=== PATIENT | female | born 1965 | race Caucasian/White ===

== ENCOUNTER 2021-11-28 20:47 | Inpatient (IN) | payer OTHER ==
[~2021-11-28] VITALS: Ht 165.1 cm; Wt 52.2 kg
--- NOTE | 2021-11-28 20:49 | NUR ---
PT SHARDA ALS. TAKEN TO BED 1
[2021-11-28 20:50] VITALS: BP 154/99
--- NOTE | 2021-11-28 21:15 | NUR ---
Patient BIB by JUAN FRANCISCO from [facility]. C/O COVID-19 positive x today. Per reported, patient missed dialysis and COVID-19 positive. PMHx: ERSD, CAD, CHF, HTN Sx: Right Hemicraniectomy, Tracheostomy, PEG tube placement, Dialysis Catheter placement, Addendum: 11/29/21 at 0555 by ALESHA TRACH PRESENT, LEFT ARM SHUNT IN PLACE WITH STRONG BRUIT, PEG INTACT TO ABDOMEN.
[2021-11-28 21:46] LABS: BASOPHILS # (AUTO) 0.1 K/uL (0.00-0.22); BASOPHILS % (AUTO) 0.7 % (0.0-2.0); EOSINOPHILS # (AUTO) 1.3 K/uL (0-0.4); EOSINOPHILS % (AUTO) 6.6 % (0.0-4.0); HEMATOCRIT 28.9 % (36-48); HEMOGLOBIN 9.1 g/dL (12.0-16.0); LYMPHOCYTES # (AUTO) 1.4 K/uL (2.5-16.5); LYMPHOCYTES % (AUTO) 7.1 % (20.5-51.1); MEAN CORPUSCULAR HEMOGLOBIN 28 pg (27-31); MEAN CORPUSCULAR HGB CONC 31 g/dL (33-37); MEAN CORPUSCULAR VOLUME 88.1 fL (80-94); MONOCYTES # (AUTO) 1.2 K/uL (0.8-1.0); MONOCYTES % (AUTO) 5.8 % (1.7-9.3); NEUTROPHILS # (AUTO) 15.8 K/uL (1.8-7.7); NEUTROPHILS % (AUTO) 79.8 % (42.2-75.2); PLATELET COUNT (AUTO) 903 K/uL (140-450); RED BLOOD CELL COUNT(AUTO) 3.29 MIL/uL (4.20-5.40); RED CELL DISTRIBUTION WIDTH 17.4 % (11.6-13.7); WHITE BLOOD COUNT (AUTO) 19.8 K/uL (4.8-10.8)
[2021-11-28 22:09] LABS: CARBON DIOXIDE 23.7 mmol/L (21-32); POTASSIUM 4.7 mmol/L (3.5-5.1); TOTAL BILIRUBIN 0.4 mg/dL (0.0-1.0)
[2021-11-28 22:15] LABS: CREATININE 4.4 mg/dL (0.6-1.3)
[2021-11-28] MEDS: PIPERACILLIN/TAZOBACTAM 4.5 GM in DEXTROSE 5% 100 ML IV ONE (23:55)
--- NOTE | 2021-11-29 | NUR ---
RESTING IN BED. RESPIRATIONS SLIGHTLY RAPID. REPOSITIONED FOR COMFORT
--- NOTE | 2021-11-29 00:55 | NUR ---
SL ESTABLISHED RIGHT HAND, LABS DRAWN
[2021-11-29] MEDS ORDERED: PIPERACILLIN/TAZOBACTAM 3.375 GM VIAL IV ONE (01:00)
[2021-11-29] MEDS ORDERED: PIPERACILLIN/TAZOBACTAM 4.5 GM VIAL IV ONE (01:37)
[2021-11-29] MEDS: PIPERACILLIN/TAZOBACTAM 4.5 GM in DEXTROSE 5% 100 ML IV ONE (01:47)
--- NOTE | 2021-11-29 03:00 | NUR ---
REPOSITIONED FOR COMFORT
[2021-11-29] MEDS ORDERED: HYDR-5080 PO (03:33)
[2021-11-29] MEDS ORDERED: LACO150T PO (03:41)
[2021-11-29] MEDS ORDERED: VITA1TAB44 PO (03:41)
[2021-11-29] MEDS ORDERED: BISO5TAB23 PO (03:41)
[2021-11-29] MEDS ORDERED: KEP500 GT (03:41)
[2021-11-29] MEDS ORDERED: INSU100S5 IJ (03:44)
[2021-11-29] MEDS ORDERED: PRO5 PO (03:45)
--- NOTE | 2021-11-29 05:30 | NUR ---
PHOTOS TAKEN OF COCCYX AND PLACED ON CHART
[2021-11-29] MEDS ORDERED: ONDANSETRON 4 MG/2 ML VIAL IVP PRN (05:35)
[2021-11-29] MEDS ORDERED: ACETAMINOPHEN 325 MG TAB PO PRN (05:35)
[2021-11-29] MEDS ORDERED: HYDROcodone/APAP 5/325 MG 1 TAB TAB PO PRN (05:35)
[2021-11-29] MEDS ORDERED: PIPERACILLIN/TAZOBACTAM 3.375 GM in DEXTROSE 5% 50 ML IV SCH (06:00)
[2021-11-29] MEDS ORDERED: PIPERACILLIN/TAZOBACTAM 2.25 GM VIAL IV ONE (06:17)
[2021-11-29] MEDS: PIPERACILLIN/TAZOBACTAM 2.25 GM in DEXTROSE 5% 50 ML IV SCH ×3 (06:45→21:46)
--- NOTE | 2021-11-29 07:31 | NUR ---
RECIEVED REPORT FROM ROSALINDA STALLWORTH FOR TRANSFER OF CARE.
--- NOTE | 2021-11-29 07:49 | NUR ---
Patient will be admitted to care of DR GRIFFIN. Admited to TELEMETRY. Will go to room 117. Belongings list completed. Report to ROSALINDA MOSES.
[2021-11-29 08:30] VITALS: BP 169/96
--- NOTE | 2021-11-29 08:30 | NUR ---
RECEIVED PATIENT FROM ER NURSE VIA SERGIO. PT ADMITTED FOR MISSED DIALYSIS. PT IS AOX0, APHASIC. RESPIRATIONS EVEN AND UNLABORED. ON 4L T-PIECE WITH 02 SATURATION AT 100%. SKIN IS WARM, DRY, AND NON-INTACT. NOTED PRESSURE ULCER ON SACRAL AREA. REINFORCED WITH DRESSING, C/D/I. IV SITE ON RH 20G. INTACT AND PATENT. SALINE LOCKED. ABD IS SOFT, FLAT, NON-DISTENDED. BOWEL SOUNDS ACTIVE IN ALL QUADRANTS. HAS G-TUBE IN PLACE. NO RESIDUAL NOTED. FLACC 0. PLAN OF CARE DISCUSSED. SAFETY PRECAUTIONS IN PLACE. WOUND BED IN LOW POSITION. CALL LIGHT WITHIN REACH. WILL CONTINUE TO MONITOR.
--- NOTE | 2021-11-29 08:59 | NUR ---
The patient's care was reviewed and supervised by ED Agency Nurse 7, RN, RN.
--- NOTE | 2021-11-29 09:45 | NUR ---
PERMIT COORDINATOR AT BEDSIDE.
[2021-11-29] MEDS: DEXAMETHASONE 4 MG/ML VIAL IVP SCH (10:00)
[2021-11-29] MEDS: MIDODRINE 5 MG TAB PO SCH (10:00)
[2021-11-29] MEDS: METOPROLOL 25 MG TAB PO SCH ×2 (10:01→21:46)
[2021-11-29] MEDS: levETIRAcetam 500 MG TAB GT SCH ×2 (10:01→21:46)
[2021-11-29] MEDS: VIT-B COMP/VIT-C/FOLIC ACID 1 TAB PO SCH (10:01)
--- NOTE | 2021-11-29 10:15 | NUR ---
ALL SCHEDULED MEDS GIVEN. PT IS STABLE NO DISTRESS NOTED. WILL CONTINUE TO MONITOR.
[2021-11-29 12:00] VITALS: BP 171/94
[2021-11-29 12:27] LABS: HEMATOCRIT 26.7 % (36-48); HEMOGLOBIN 8.3 g/dL (12.0-16.0); MEAN CORPUSCULAR HEMOGLOBIN 27 pg (27-31); MEAN CORPUSCULAR HGB CONC 31 g/dL (33-37); MEAN CORPUSCULAR VOLUME 87.7 fL (80-94); PLATELET COUNT (AUTO) 918 K/uL (140-450); RED BLOOD CELL COUNT(AUTO) 3.04 MIL/uL (4.20-5.40); WHITE BLOOD COUNT (AUTO) 21.1 K/uL (4.8-10.8)
[2021-11-29 12:40] LABS: ANION GAP 19.1 (8-16); CARBON DIOXIDE 23.6 mmol/L (21-32); POTASSIUM 5.7 mmol/L (3.5-5.1)
[2021-11-29 13:29] LABS: EOSINOPHILS % (MANUAL) 3 % (0-4); LYMPHOCYTES % (MANUAL) 3 % (20-46); MONOCYTES % (MANUAL) 3 % (5-12)
--- NOTE | 2021-11-29 14:04 | NUR ---
ALL SCHEDULED MEDS GIVEN. PT IS STABLE. NO DISTRESS NOTED. WILL CONTINUE TO MONITOR.
[2021-11-29] MEDS: hydrALAZINE 20 MG/ML VIAL IVP PRN (14:05)
--- NOTE | 2021-11-29 14:18 | NUR ---
RECEIVED ON HUMIDIFIED SUPPLEMENTAL OXYGEN AT 5 LPM TO T-PIECE/TRACHEOSTOMY TUBE SATURATION 100% TITRATED FIO2 TO 4 LPM AURELIA/RN NOTIFIED
--- NOTE | 2021-11-29 14:55 | NUR ---
IV DISLODGED REINSERTED NEW 22G IV ON RH. INTACT AND PATENT.
[2021-11-29 16:00] VITALS: BP 111/77
--- NOTE | 2021-11-29 17:30 | NUR ---
CHECKED ON PATIENT. PT IS STABLE. NO DISTRESS NOTED. WILL CONTINUE TO MONITOR.
--- NOTE | 2021-11-29 18:00 | NUR ---
DR. GRADY AT PATIENT'S BEDSIDE.
--- NOTE | 2021-11-29 19:40 | NUR ---
ENDORSED TO SALESFORCE ADMINISTRATOR NURSE FOR CONTINUITY OF CARE. HD NURSE AT BEDSIDE. PT IS STABLE.
[2021-11-29 20:29] VITALS: BP 100/70
[2021-11-29 23:34] VITALS: BP 113/71
[2021-11-30 03:54] VITALS: BP 134/78
[2021-11-30] MEDS: PIPERACILLIN/TAZOBACTAM 2.25 GM in DEXTROSE 5% 50 ML IV SCH ×3 (06:06→21:31)
--- NOTE | 2021-11-30 07:18 | NUR ---
PATIENT HAS BEEN SCREENED AND CATEGORIZED HIGH NUTRITION RISK. PATIENT WILL BE SEEN WITHIN 1-2 DAYS OF ADMISSION. 11/29/21-11/30/21 TROY GAGNON MS, RDN
[2021-11-30 07:25] LABS: BASOPHILS # (AUTO) 0.1 K/uL (0.00-0.22); BASOPHILS % (AUTO) 0.3 % (0.0-2.0); EOSINOPHILS # (AUTO) 0.1 K/uL (0-0.4); EOSINOPHILS % (AUTO) 0.8 % (0.0-4.0); HEMATOCRIT 27.6 % (36-48); HEMOGLOBIN 8.6 g/dL (12.0-16.0); LYMPHOCYTES # (AUTO) 1.1 K/uL (2.5-16.5); LYMPHOCYTES % (AUTO) 6.4 % (20.5-51.1); MEAN CORPUSCULAR HEMOGLOBIN 28 pg (27-31); MEAN CORPUSCULAR HGB CONC 31 g/dL (33-37); MEAN CORPUSCULAR VOLUME 90.7 fL (80-94); MONOCYTES # (AUTO) 0.9 K/uL (0.8-1.0); MONOCYTES % (AUTO) 5.3 % (1.7-9.3); NEUTROPHILS # (AUTO) 14.6 K/uL (1.8-7.7); NEUTROPHILS % (AUTO) 87.2 % (42.2-75.2); PLATELET COUNT (AUTO) 961 K/uL (140-450); RED BLOOD CELL COUNT(AUTO) 3.04 MIL/uL (4.20-5.40); RED CELL DISTRIBUTION WIDTH 17.1 % (11.6-13.7); WHITE BLOOD COUNT (AUTO) 16.8 K/uL (4.8-10.8)
[2021-11-30 07:41] LABS: ALBUMIN 2.1 g/dL (3.4-5.0); ANION GAP 16.2 (8-16); CARBON DIOXIDE 24.3 mmol/L (21-32); CREATININE 3.6 mg/dL (0.6-1.3); POTASSIUM 3.5 mmol/L (3.5-5.1); TOTAL BILIRUBIN 0.7 mg/dL (0.0-1.0)
[2021-11-30 08:00] VITALS: BP 144/93
[2021-11-30] MEDS: DEXAMETHASONE 4 MG/ML VIAL IVP SCH (08:58)
[2021-11-30] MEDS: VIT-B COMP/VIT-C/FOLIC ACID 1 TAB PO SCH (08:59)
[2021-11-30] MEDS: levETIRAcetam 500 MG TAB GT SCH ×2 (08:59→21:26)
[2021-11-30] MEDS: METOPROLOL 25 MG TAB PO SCH ×2 (08:59→21:27)
[2021-11-30] MEDS: MIDODRINE 5 MG TAB PO SCH (09:00)
--- NOTE | 2021-11-30 09:23 | NUR ---
RECEIVE ENDORSEMENT THAT PATIENT REST IN BED, W/ TKO THROUGH PIV R.WRIST 20G INFUSING. OXYGEN THROUGH TRACHEA. WILL CONTINUE TO MONITOR.
--- NOTE | 2021-11-30 09:47 | NUR ---
DIALYSIS NURSE IS HER TO GIVE PATIENT A ADDITION DIALYSIS TODAY
--- NOTE | 2021-11-30 10:38 | NUR ---
(11/30/21) RD INITIAL ASSESSMENT COMPLETED PLEASE REFER TO NUTRITION ASSESSMENT UNDER CARE ACTIVITY FOR ESTIMATED NUTRITIONAL NEEDS. RD RECOMMENDATIONS: 1. CONTINUE NEPRO AT 50 ML/HR X 24 HOURS WITH 150 ML FREE WATER FLUSH Q6H (600 ML). THIS PROVIDES 1200 ML TOTAL VOLUME, 2160 KCAL, 97 GM PROTEIN, 872 ML TOTAL FREE WATER (1472 ML FREE WATER TOTAL WITH FWF); MEETING > 100% EST KCAL AND >100% EST PROTEIN NEEDS. 2. CONSULT RDN PRN. 3. RD WILL F/U 2-3 DAYS; HIGH RISK. TROY GAGNON, MS, RDN
[2021-11-30 12:00] VITALS: BP 106/62
[2021-11-30] MEDS ORDERED: EPOETIN ALFA-EPBX 10,000 UNITS/ML VIAL SUBQ SCH (14:00)
[2021-11-30 16:00] VITALS: BP 118/76
--- NOTE | 2021-11-30 17:00 | NUR ---
PATIENT TOLERATE DIALYSIS PROCEDURE, TUBE FEED NEPRO 10ML/HR W/ WATER 150ML Q6HRS. DIALYSIS REMOVED 1500ML. WILL CONTINUE MONITOR
--- NOTE | 2021-11-30 19:25 | NUR ---
RECEIVED PATIENT FROM AM NURSE FOR CONTINUITY OF CARE.PT IS STABLE
--- NOTE | 2021-11-30 19:26 | NUR ---
ENDORSE PT TO PM SHIFT NURSE THAT PATIENT REST IN BED, W/ TKO VIA PIV R.HAND 20G INFUSING. OXYGEN 3 LITER VIA TRACHEA, TODAY DIALYSIS REMOVED 1.5 LITER
[2021-11-30 20:00] VITALS: BP 116/78
--- NOTE | 2021-11-30 21:30 | NUR ---
ALL MEDICATIONS GIVEN,NO ADVERSE REACTIONS NOTED
[2021-12-01] VITALS: BP 116/78
--- NOTE | 2021-12-01 01:00 | NUR ---
PT ASLEEP,RESPIRATIONS EVEN AND UNLABORED,NO DISTRESS NOTED
--- NOTE | 2021-12-01 01:49 | NUR ---
0130 PATIENT SXNED . SMALL AMOUNT PALE YELLOW SECRETIONS
--- NOTE | 2021-12-01 03:00 | NUR ---
CLEANED AND REPOSITIONED, O2 SAT 95-99%. NO DISTRESS NOTED
[2021-12-01 04:00] VITALS: BP 107/66
--- NOTE | 2021-12-01 06:00 | NUR ---
CLEANED AND REPOSITIONED THE PT,TOLERATED WELL,NO SOB NOTED
[2021-12-01] MEDS: PIPERACILLIN/TAZOBACTAM 2.25 GM in DEXTROSE 5% 50 ML IV SCH ×3 (06:05→20:45)
--- NOTE | 2021-12-01 06:55 | NUR ---
LABS CALLED, PT IS POSITIVE FOR MRSA
--- NOTE | 2021-12-01 07:59 | NUR ---
RECEIVE ENDORSEMENT FROM PM SHIFT NURSE W/ PATIENT REST IN BED, PIV R.HAND 20G IV NS INFUSING AT 5ML/HR. TUBE FEED NEPRO 40ML/HR. WILL CONTINUE TO MONITOR
[2021-12-01 08:00] VITALS: BP 114/89
[2021-12-01] MEDS: levETIRAcetam 500 MG TAB GT SCH ×2 (08:41→20:45)
[2021-12-01] MEDS: VIT-B COMP/VIT-C/FOLIC ACID 1 TAB PO SCH (08:42)
[2021-12-01] MEDS: MIDODRINE 5 MG TAB PO SCH (08:42)
[2021-12-01] MEDS: METOPROLOL 25 MG TAB PO SCH ×2 (08:42→20:45)
[2021-12-01] MEDS: DEXAMETHASONE 10 MG/ML VIAL IVP SCH (08:43)
[2021-12-01] MEDS ORDERED: EPOETIN ALFA-EPBX 10,000 UNITS/ML VIAL SUBQ SCH (09:45)
[2021-12-01 12:00] VITALS: BP 131/85
--- NOTE | 2021-12-01 14:54 | NUR ---
DC PLANNING: THE PATIENT WAS ADMITTED FROM [facility] WITH C/O MISSED DIALYSIS, PATIENT IS TRACH/VENT/PEG. H/O OF ICH WITH CRANIOTOMY, ESRD WITH HD, COVID RAPID POSITIVE. CXR SHOWS POSSIBLE MILD PERIHILAR PNA, NA+ 129, BNP 1260,W BC 19.8, GIVEN ZOSYN IV IN ER. STARTED ON DECADRON AND ZOSYN, ORDERS FOR PULMONOLOGY AND NEPHROLOGY. KAT TRIED TO REACH STAFF AT [facility] MULTIPLE TIMES, THEY STATES PHONE ISSUES FOR REASON FOR LACK OF RESPONSE. KAT REACHED OUT TO THE PATIENTS BY PHONE USING [employer] IN [place]. THE PATIENT HAS BEEN AT [facility] FOR 2-3 MONTHS FOLLOWING AN ICH. THE PATIENT IS TOTAL CARE BUT IS ABLE TO RESPOND TO QUESTIONS USING HER HANDS. SHE GOES TO [facility] ON T, AND SAT, DR MIGUELINA WILLIS IS HER HEALTH TEACHER AND TRANSPORT IS VIA [facility]. KAT EXPLAINED TO HER ALON THAT SHE MIGHT CHANGE DIALYSIS CENTERS BECAUSE OF HER COVID STATUS, HE STATED HE UNDERSTOOD. HE ALSO ASKED ABOUT POSSIBLE LUNCHROOM SUPERVISOR SHUNT PLACEMENT THE MD AT [facility] STATED SHE WOULD NEED THIS 3 MONTHS POST DC FROM [facility], [facility]. KAT SPOKE WITH EUNICE AT [facility], THE PATIENT WILL BE SCHEDULED FOR AN END OF DAY CHAIR TIME TO ACCOMMODATE HER COVID STATUS. KAT THEN SPOKE WITH LATRELL FROM [facility], SHE STATES THAT PATIENT MISSED DIALYSIS BECAUSE [facility] DID NOT SHOW UP TO TRANSPORT WHICH HAD NO HAPPENED BEFORE. SHE WILL FOLLOW UP WITH [facility] REGARDING CHAIR TIME AND WILL MAKE TRANSPORT ARRANGEMENTS WITH [facility]. THE PATIENT WILL RETURN TO [facility] WHEN CLINICALLY STABLE, KAT WILL FOLLOW. Addendum: 12/04/21 at 1326 by Cecilia Mendez CM DC PLANNING: PATIENT ACCEPTED TO [facility] FOR POTENTIAL DC THIS WEEKEND. ASSIGNED ROOM 115, DR DICK TO FOLLOW. TRANSPORT PLACED ON WILL CALL WITH NIRMALA ([phone]), AUTH NUMBER THROUGH [facility] FOR [facility] IS [id number]. CLINICALS FAXED TO [facility] FOR MD REVIEW FOR AUTHORIZATION FOR [facility]. KAT SPOKE WITH JEFFREY AT [facility], SHE WILL CALL [facility] [employer] TO CONFIRM THE NEW CHAIR TIME FOR THE PATIENT. KAT WILL FOLLOW. Addendum: 12/04/21 at 1355 by Cecilia Mendez CM DC PLANNING: FOR WEEKEND DC CALL [facility] WITH ANY ISSUES AT [phone]. Addendum: 12/07/21 at 1055 by Cecilia Mendez CM DC PLANNING: PATIENT SCHEDULED WITH [facility] FOR 1300 ECHOMETER ENGINEER TO RETURN TO [facility] FOR [facility]. CM WILL FOLLOW. Addendum: 12/07/21 at 1100 by Cecilia Mendez CM DC PLANNING: INFORMED BY PATIENTS RN THAT SHE IS RECEIVING DIALYSIS, ECHOMETER ENGINEER TIME WITH [facility] CHANGED TO 1700. CM WILL FOLLOW. Addendum: 12/07/21 at 1143 by Cecilia Mendez CM DC PLANNING: KAT AND BELLE SPOKE WITH THE PATIENTS BY PHONE TO LET HIM KNOW THAT THE PATIENT IS RETURNING TO [facility] TODAY AND IS BEING PICKED UP AT 1700. CM WILL FOLLOW.
--- NOTE | 2021-12-01 15:30 | NUR ---
CHANGED PATIENT'S SACRAL WOUND DRESSING THAT CLEANING W/ NS. PATIENT TOLERATE. WILL CONTINUE TO MONITOR.
[2021-12-01 16:00] VITALS: BP 105/41
--- NOTE | 2021-12-01 19:26 | NUR ---
ENDORSE PT TO PM SHIFT NURSE W/ PATIENT REST IN BED, PIV R.HAND 24G NS INFUSING AT 5ML/HR. TUBE FEED NEPRO 50ML/HR W/ 150ML WATER FLUS Q6HR
--- NOTE | 2021-12-01 19:37 | NUR ---
RECEIVED PT FROM AM NURSE FOR CONTINUITY OF CARE.PT IS STABLE
[2021-12-01 20:00] VITALS: BP 135/64
--- NOTE | 2021-12-01 21:30 | NUR ---
ALL SCHEDULED MEDS GIVEN,NO ADVERSE REACTIONS NOTED
[2021-12-02] VITALS: BP 154/91
--- NOTE | 2021-12-02 01:00 | NUR ---
PATIENT ASLEEP,BREATHING EVEN AND UNLABORED. NO DISTRESS NOTED
--- NOTE | 2021-12-02 03:00 | NUR ---
CLEANED AND REPOSITIONED,NO SOB NOTED
[2021-12-02 04:00] VITALS: BP 149/93
[2021-12-02] MEDS: PIPERACILLIN/TAZOBACTAM 2.25 GM in DEXTROSE 5% 50 ML IV SCH ×3 (05:46→22:21)
[2021-12-02 06:08] LABS: HEPATITIS B SURFACE ANTIGEN Negative (Negative)
--- NOTE | 2021-12-02 06:16 | NUR ---
PATIENT AWAKE ,RESPIRATION EVEN AND UNLABORED,NO DISTRESS NOTED
--- NOTE | 2021-12-02 07:12 | NUR ---
FAX NOT WORKING - INFORM DIETARY DEPT. BY PHONE - PT IS COVID + .
--- NOTE | 2021-12-02 07:30 | NUR ---
RECEIVED REPORT FROM NIGHTSHIFT NURSE FOR CONTINUITY OF CARE. PLAN OF CARE DISCUSSED. PT IN STABLE CONDITION, CURRENTLY SLEEPING, TRACHE W/ NC IN PLACE ON 3L O2. G-TUBE RUNNING NEPRO AT 50ML/HR. IV SITE CLEAN, DRY, AND PATENT. SKIN INTACT, WITH REDNESS NOTED ON THE SACRAL AREA. PT BEDBOUND, INCONTINENT OF THE BOWEL AND BLADDER. PER NIGHTSHIFT NURSE, PT ABLE TO PRODUCE URINE AND VOIDED 3X. PT DENIES PAIN OR DISCOMFORT AT THIS TIME.
[2021-12-02 08:00] VITALS: BP 153/98
[2021-12-02] MEDS: EPOETIN ALFA-EPBX 10,000 UNITS/ML VIAL SUBQ SCH (08:55)
[2021-12-02] MEDS: DEXAMETHASONE 10 MG/ML VIAL IVP SCH (08:55)
[2021-12-02] MEDS: levETIRAcetam 500 MG TAB GT SCH ×2 (08:56→21:00)
[2021-12-02] MEDS: METOPROLOL 25 MG TAB PO SCH ×2 (08:56→21:00)
[2021-12-02] MEDS: VIT-B COMP/VIT-C/FOLIC ACID 1 TAB PO SCH (08:56)
[2021-12-02] MEDS: MIDODRINE 5 MG TAB PO SCH (08:57)
--- NOTE | 2021-12-02 09:30 | NUR ---
PT VISUALLY ASSESSED, PT IS IN STABLE CONDITION. BREATHING IS EVEN, REGULAR, AND UNLABORED ON T-TUBE. G-TUBE FEEDING STILL RUNNING PATENT, IV CLEAN, DRY, AND INTACT. PT SHOWS NO SIGNS OF DISTRESS AT THIS TIME. WILL CONTINUE TO MONITOR.
--- NOTE | 2021-12-02 11:30 | NUR ---
DIALYSIS NURSE AT BEDSIDE BEGINNING DIALYSIS. NO DISTRESS NOTED ON THE PT. WILL MONITOR.
[2021-12-02 11:35] LABS: MAGNESIUM 3.3 mg/dL (1.8-2.4); PHOSPHORUS 5.3 mg/dL (2.5-4.9)
[2021-12-02 11:36] LABS: ANION GAP 18.6 (8-16); CARBON DIOXIDE 22.8 mmol/L (21-32); POTASSIUM 3.4 mmol/L (3.5-5.1)
[2021-12-02 11:41] LABS: CREATININE 4.8 mg/dL (0.6-1.3)
[2021-12-02 11:59] LABS: BASOPHILS # (AUTO) 0.1 K/uL (0.00-0.22); BASOPHILS % (AUTO) 0.5 % (0.0-2.0); EOSINOPHILS # (AUTO) 0.2 K/uL (0-0.4); EOSINOPHILS % (AUTO) 1.3 % (0.0-4.0); HEMATOCRIT 24.5 % (36-48); HEMOGLOBIN 8.2 g/dL (12.0-16.0); LYMPHOCYTES # (AUTO) 0.8 K/uL (2.5-16.5); LYMPHOCYTES % (AUTO) 5.6 % (20.5-51.1); MEAN CORPUSCULAR HEMOGLOBIN 32 pg (27-31); MEAN CORPUSCULAR HGB CONC 33 g/dL (33-37); MEAN CORPUSCULAR VOLUME 94.4 fL (80-94); MONOCYTES # (AUTO) 0.6 K/uL (0.8-1.0); MONOCYTES % (AUTO) 4.4 % (1.7-9.3); NEUTROPHILS # (AUTO) 12.3 K/uL (1.8-7.7); NEUTROPHILS % (AUTO) 88.2 % (42.2-75.2); PLATELET COUNT (AUTO) 960 K/uL (140-450); RED CELL DISTRIBUTION WIDTH 17.6 % (11.6-13.7)
[2021-12-02 12:00] VITALS: BP 161/98
--- NOTE | 2021-12-02 12:00 | NUR ---
PER CREDIT PROFESSIONAL, BP 161/98. PT CURRENTLY RECEIVING HD, CANNOT ADMINISTER BLOOD PRESSURE MEDICATIONS AT THIS TIME. WILL REASSESS BP UPON COMPLETION OF HD.
--- NOTE | 2021-12-02 13:22 | NUR ---
10,000 UNIT HEPARIN GIVEN TO HD NURSE. HD ADMINISTERED, RN VERIFIED.
--- NOTE | 2021-12-02 13:28 | NUR ---
WOUND CARE EVALUATION NOTE: SKIN ASSESSMENT DONE WITH THIS 55 Y/O PT ADMITTED FROM SNF TO [facility] WITH COVID POSITIVE, SACRALCOCCYX PRESSURE INJURY. PAST MEDICAL HX INCLUDES PAST MEDICAL HISTORY OF ESRD, CAD, CHF, HYPERTENSION, STATUS POST TRACH AND PEG. ALL ABOVE INFORMATION OBTAINED FROM ADMISSION H&P. PT IS AWAKE. SKIN IS WARM AND DRY, BLE SEVERE CONTRACTURE, HYPERPIGMENTATION, NO EDEMA. DORSAL PEDAL PULSES PRESENT AND NORMAL. CAPILLARY REFILLED > 3 SEC. X 10 TOES. INCONTINENT OF BOWEL AND BLADDER. PLAN OF CARE DISCUSSED WITH PRIMARY RN. INTEGUMENTARY: -ORAL MEMBRANE PINK INTACT, LIPS, CHEEKS SKIN DRY, NO OPEN WOUNDS -TRACH SITE MILLIE STOMA SKIN DRY AND CLEAN. SKIN INTACT. - GT SITE MILLIE STOMA WITH SKIN INTACT. -INCONTINENT ASSOCIATE DERMATITIS (IAD) TO: B/L GROINS EXTENDED TO PERINEUM, SKIN REDNESS -PRESSURE ULCER INJURY STAGE 4, SACROCOCCYX [id number], UNDERMINING 9 OCLOCK TO 3 OCLOCK DEEPEST TO 12 OCLOCK 2CM, WOUND BED 100% RED GRANULATION TISSUE, MODERATE AMOUNT SEROUS DRAINAGE, NO ODOR, MILLIE-WOUND SKIN MOIST -RIGHT AND LEFT HEELS BLANCHABLE SKIN INTACT WITH THIN PEELING CALLUS RECOMMENDATIONS: -APPLY HYDRAGUARD TO R/L GROINS EXTENDED TO PERINEUM BID AND PRN IF SOILING - CLEANSE SACRALCOCCYX WITH WOUND CLEANSING SOLUTION AND PACK WOUND WITH ONE PIECEMOIST HYDRAGEL OIL EMULISION DRESSING, COVER WITH DRY DRESSING QD AND PRN IF SOILING -APPLY FORM DRESSING TO MEDIAL KNEES Q7 DAYS AND PRN IF SOILING PREVENTION -POSITIONING: TURN AND REPOSITION PATIENT Q 2H OR SOONER USE PILLOWS TO KEEP BONY PROMINENCES FROM DIRECT CONTACT WITH SURFACES USE REPOSITIONING WEDGES TO PROVIDE 30-DEGREE ANGLE FOR SIDE LYING POSITIONS OFFLOADING OR FOAM DRESSING TO ALL TUBING TO PREVENT MEDICAL DEVICES RELATED PRESSURE INJURY -RE-EVALUATING AND MANAGING INCONTINENCE MONITOR SKIN CONDITION DURING POSITION CHANGE DO NOT MASSAGE REDNESS, BONY PROMINENCES FREQUENT MILLIE-CARE AND PROVIDE BARRIER CREAMS PRN IF SOILING MOISTURE CONTROL BY OFFER BED BELTRÁN/URINAL /ABSORBENT PAD TO WICK AND HOLD MOISTURE KEEP SKIN DRY AND PROTECT FROM FRICTION -MANAGE FRICTION/SHEAR/MOBILITY KEEP HOB AT THE LOWEST LEVEL OF ELEVATION NO MORE THAN 30 DEGREES UNLESS OTHERWISE CONTRAINDICATED USE LIFT SHEET OR TRANSFER DEVICE TO MOVE PATIENT AND PREVENT LATERAL SHEER. PROTECT HEELS, ELBOWS BONY PROMINENCES WITH SKIN BERRIES OR FOAM DRESSING IF EXPOSED TO FRICTION OFFLOAD BILATERAL HEELS BY PLACING PILLOWS UNDER CALVES AT ALL TIMES, UNLESS OTHERWISE CONTRAINDICATED -PRESSURE REDISTRIBUTION SURFACE THERAPY WICHO ISOFLEX JUNI MATTRESS -NUTRITION: PLEASE FOLLOW RD RECOMMENDATIONS AND OFFER NUTRITION SUPPLEMENTS IF ORDERED.
--- NOTE | 2021-12-02 13:55 | NUR ---
PER SHEET FED PRINTER CHANGE RATE OF THE FEEDING TO 45 ML/HR AND ADD MARIAJOSE BID.
--- NOTE | 2021-12-02 14:00 | NUR ---
PT VISUALLY ASSESSED. PT IN STABLE CONDITION, NO SIGNS OF DISTRESSED NOTED AT THIS TIME. WILL CONTINUE TO MONITOR.
--- NOTE | 2021-12-02 14:18 | NUR ---
12/02/21 RD FOLLOW UP COMPLETED PLEASE REFER TO NUTRITION ASSESSMENT UNDER CARE ACTIVITY FOR ESTIMATED NUTRITIONAL NEEDS. 1. CONTINUE NEPRO WITH A NEW GOAL RATE OF 45 ML/HR WITH 150 ML FREE WATER FLUSH Q6H TOLERATED -PROVIDES 1944 KCAL AND 87 GM PROTEIN, MEETING 100% OF ESTIMATED NUTRITIONAL NEEDS 2. RECOMMEND MARIAJOSE BID PER RD PROTOCOL 3. RD WILL F/U 2-3 DAYS; HIGH RISK. BRITNEY TREVINO RD
[2021-12-02 16:00] VITALS: BP 131/87
--- NOTE | 2021-12-02 16:31 | NUR ---
PT VISUALLY ASSESSED, IN STABLE CONDITION. BED BATH GIVEN BY OUTSIDE SALES ENGINEER FOR BOWEL MOVEMENT. PT TOLERATED CLEANING WELL. NO SIGNS OF DISTRESS NOTED AT THIS TIME.
--- NOTE | 2021-12-02 19:40 | NUR ---
ENDORSED PT TO UTILITY MANAGER NURSE FOR CONTINUITY OF CARE. PT IS STABLE. PLAN OF CARE DISCUSSED.
[2021-12-02 20:00] VITALS: BP 131/87
[2021-12-03] VITALS: BP 123/82
[2021-12-03] MEDS: HYDRAGUARD CREAM TP SCH ×2 (01:00→12:32)
--- NOTE | 2021-12-03 01:22 | NUR ---
PATIENT AWAKE HAS TRACH TO VENT TO T-BAR 4 LITERS SAT 100% ON MONITOR SINUS TACH HAS UPPER RIGHT CHEST VERONICA CATH HAD DIALYSIS 12/02/21 1.6 OUT PATIENT IS APHASIC PATIENT IN ISOLATION FOR COVID +. PATIENT IS ALSO A S/P CRANEY PATIENT HAS 20 GA IN RIGHT HAND. NO COUGH OR SIGN OF RESP DISTRESS.
[2021-12-03 04:00] VITALS: BP 125/80
[2021-12-03] MEDS: PIPERACILLIN/TAZOBACTAM 2.25 GM in DEXTROSE 5% 50 ML IV SCH ×2 (06:00→14:40)
[2021-12-03 07:22] LABS: ANION GAP 21.4 (8-16); CARBON DIOXIDE 23.2 mmol/L (21-32); CREATININE 3.7 mg/dL (0.6-1.3); POTASSIUM 3.6 mmol/L (3.5-5.1)
[2021-12-03 07:26] LABS: BASOPHILS # (AUTO) 0.1 K/uL (0.00-0.22); BASOPHILS % (AUTO) 0.6 % (0.0-2.0); EOSINOPHILS # (AUTO) 0.1 K/uL (0-0.4); EOSINOPHILS % (AUTO) 0.4 % (0.0-4.0); HEMATOCRIT 28.6 % (36-48); HEMOGLOBIN 9.2 g/dL (12.0-16.0); LYMPHOCYTES # (AUTO) 1.4 K/uL (2.5-16.5); LYMPHOCYTES % (AUTO) 9.2 % (20.5-51.1); MEAN CORPUSCULAR HEMOGLOBIN 30 pg (27-31); MEAN CORPUSCULAR HGB CONC 32 g/dL (33-37); MEAN CORPUSCULAR VOLUME 93.8 fL (80-94); MONOCYTES # (AUTO) 1.1 K/uL (0.8-1.0); MONOCYTES % (AUTO) 6.9 % (1.7-9.3); NEUTROPHILS # (AUTO) 12.9 K/uL (1.8-7.7); NEUTROPHILS % (AUTO) 82.9 % (42.2-75.2); PLATELET COUNT (AUTO) 1129 K/uL (140-450); RED BLOOD CELL COUNT(AUTO) 3.05 MIL/uL (4.20-5.40); RED CELL DISTRIBUTION WIDTH 17.6 % (11.6-13.7); WHITE BLOOD COUNT (AUTO) 15.5 K/uL (4.8-10.8)
--- NOTE | 2021-12-03 07:53 | NUR ---
REPORTED CRITICAL LAB OF PLATELET 1,[address] ABDI. HE ORDERED LOVENOX 40 MG DAILY IF NO BLEEDING. NO BLEEDING NOTED.
[2021-12-03 08:00] VITALS: BP 145/86
[2021-12-03] MEDS ORDERED: ENOXAPARIN 30 MG/0.3 ML SYR SUBQ SCH (09:00)
[2021-12-03] MEDS: MIDODRINE 5 MG TAB PO SCH (09:00)
[2021-12-03] MEDS: VIT-B COMP/VIT-C/FOLIC ACID 1 TAB PO SCH (10:13)
[2021-12-03] MEDS: levETIRAcetam 500 MG TAB GT SCH ×2 (10:13→21:00)
[2021-12-03] MEDS: METOPROLOL 25 MG TAB PO SCH ×2 (10:13→21:00)
[2021-12-03] MEDS: DEXAMETHASONE 10 MG/ML VIAL IVP SCH (10:15)
--- NOTE | 2021-12-03 10:30 | NUR ---
ROUNDED ON PT. SHE IS LAYING IN SEMI FOWLERS POSITION. NO DISTRESS NOTED. ON 4L O2 TRACH TO TBAR. PT WAS SOILED WITH BM, CHANGED AND REPOSITIONED.
--- NOTE | 2021-12-03 11:07 | NUR ---
RECEIVED ON SUPPLEMENTAL OXYGEN AT 4 LPM TO T-PIECE/TRACHEOSTOMY TUBE SATURATION 100% POST DEEP TRACHEAL SUCTION TITRATED FIO2 TO 3 LPMN CAN SEALER TO NOTIFY DAY RN
[2021-12-03 12:00] VITALS: BP 123/79
[2021-12-03] MEDS: SKINTEGRITY HYDROGEL TP SCH (12:32)
--- NOTE | 2021-12-03 13:00 | NUR ---
PT IS STABLE. NO DISTRESS NOTED. CHEST RISE AND FALL SYMMETRICAL. G TUBE FEEDING INFUSING ORDERED. IV IS PATENT AND INTACT. WILL CONTINUE TO MONITOR.
[2021-12-03 16:00] VITALS: BP 125/77
--- NOTE | 2021-12-03 17:00 | NUR ---
PT WAS GIVEN BED BATH AND REPOSITIONED. WOUND CARE WAS PROVIDED. PT IS STABLE. NO DISTRESS AT THIS TIME. CALM AND RESTING IN SEMI FOWLERS POSITION.
--- NOTE | 2021-12-03 19:25 | NUR ---
REPORT WAS GIVEN TO CONSTRUCTION PROJECT COORDINATOR NURSE FOR CONTINUITY OF CARE. PT IS STABLE. PLAN OF CARE DISCUSSED.
[2021-12-03 20:00] VITALS: BP 169/99
[2021-12-04] VITALS: BP 189/110
[2021-12-04] MEDS: HYDRAGUARD CREAM TP SCH ×3 (01:00→22:31)
[2021-12-04] MEDS: hydrALAZINE 20 MG/ML VIAL IVP PRN (01:22)
--- NOTE | 2021-12-04 01:25 | NUR ---
PATIENT AWAKE BUT NOT ALERT APHASIC PATIENT TO TRACH TO VENT 4 LITERS SINUS TACH ON MONITOR. LUNGS DIMINISH SAT 100%. NO VOID OR BOWEL MOVEMENT PATIENT IS A DIALYSIS PATIENT TO HAVE DIALYSIS IN A.M. PATIENT HAS G-TUBE NEPRO AT 45 HOUR. NO RESIDUAL 1999 AND 0000. GETTING 150 WATER FLUSH EVERY SIX HOURS. PATIENT HAS FISTULA IN LEFT UPPER ARM WAS TOLD IS DISFUNCTIONAL. PATIENT B/P WENT HIGH 189/110. PATIENT WAS GIVEN LOPRESSOR 25 MG 2100. AT 2100 B/P 169/99. AT 0102 B/P 189/110. PATIENT GIVEN APRESOLINE 10 MG IVP 0122. TO REASSESS AT 0222. AT 2200 RECEIVED ZOSYN 2.25GM IVPB 2300 IV OUT AT SITE IN RIGHT HAND AND BLEEDING RESTART IN RIGHT THUMB AT 0100. WRAPPED HAND DUE TO PATIENT HITTING RIGHT HAND ON SIDE RAIL.
[2021-12-04] MEDS: CHLORHEXADINE GLUC 2% CLOTH TP SCH (02:00)
[2021-12-04] MEDS: MUPIROCIN CA NASAL 2% 1GM TUBE NS SCH ×2 (02:00→22:31)
[2021-12-04] MEDS ORDERED: MEROPENEM 1,000 MG in NACL 0.9% 50 ML IV ONE (02:05)
[2021-12-04] MEDS ORDERED: MEROPENEM 1,000 MG VIAL IV ONE (02:25)
[2021-12-04 04:00] VITALS: BP 144/86
[2021-12-04 07:29] LABS: BASOPHILS # (AUTO) 0.1 K/uL (0.00-0.22); BASOPHILS % (AUTO) 0.4 % (0.0-2.0); EOSINOPHILS # (AUTO) 0.1 K/uL (0-0.4); EOSINOPHILS % (AUTO) 0.5 % (0.0-4.0); HEMATOCRIT 27.3 % (36-48); LYMPHOCYTES # (AUTO) 1.8 K/uL (2.5-16.5); LYMPHOCYTES % (AUTO) 12.2 % (20.5-51.1); MEAN CORPUSCULAR HEMOGLOBIN 32 pg (27-31); MEAN CORPUSCULAR HGB CONC 33 g/dL (33-37); MEAN CORPUSCULAR VOLUME 95.8 fL (80-94); NEUTROPHILS # (AUTO) 11.7 K/uL (1.8-7.7); NEUTROPHILS % (AUTO) 79.9 % (42.2-75.2); PLATELET COUNT (AUTO) 1052 K/uL (140-450); RED BLOOD CELL COUNT(AUTO) 2.85 MIL/uL (4.20-5.40); WHITE BLOOD COUNT (AUTO) 14.7 K/uL (4.8-10.8)
[2021-12-04 07:38] LABS: ANION GAP 23.8 (8-16); CARBON DIOXIDE 22.1 mmol/L (21-32); POTASSIUM 3.9 mmol/L (3.5-5.1)
[2021-12-04 08:00] VITALS: BP 159/94
--- NOTE | 2021-12-04 08:00 | NUR ---
RECEIVED REPORT FROM NIGHTSKIMMYFT RN. PT NONVERBAL. HOB ELEVATED. TRACH TO VENT ON 4L. IN NO DISTRESS. GTUBE FEEDING INFUSING. 5ML RESIDUAL. IVF INFUSING. PT RESTING. CONTRACTED. NEEDS ALL MET AT THIS TIME. SAFETY MEASURES IN PLACE. WILL CONTINUE TO MONITOR CLOSELY.
[2021-12-04 08:20] LABS: CREATININE 5.2 mg/dL (0.6-1.3)
--- NOTE | 2021-12-04 08:27 | NUR ---
LAB CALLED WITH CRITICAL VALUES: BUN 93 CREATININE 5.2 NURSE MADE AWARE
[2021-12-04] MEDS: MIDODRINE 5 MG TAB PO SCH (09:00)
[2021-12-04] MEDS: VIT-B COMP/VIT-C/FOLIC ACID 1 TAB PO SCH (09:04)
[2021-12-04] MEDS: METOPROLOL 25 MG TAB PO SCH ×2 (09:04→22:30)
[2021-12-04] MEDS: levETIRAcetam 500 MG TAB GT SCH ×2 (09:04→22:31)
[2021-12-04] MEDS: EPOETIN ALFA-EPBX 10,000 UNITS/ML VIAL SUBQ SCH (09:05)
[2021-12-04] MEDS: DEXAMETHASONE 10 MG/ML VIAL IVP SCH (09:06)
[2021-12-04 12:00] VITALS: BP 158/93
--- NOTE | 2021-12-04 12:00 | NUR ---
PT TOLERATING GTUBE FEEDING. 3ML RESIDUAL VIA GTUBE. HOB ELEVATED. IN NO DISTRESS. HOURLY ROUNDS CONDUCTED.
[2021-12-04] MEDS: SKINTEGRITY HYDROGEL TP SCH (12:01)
--- NOTE | 2021-12-04 12:16 | NUR ---
12/04/21 RD FOLLOW UP COMPLETED PLEASE REFER TO NUTRITION ASSESSMENT UNDER CARE ACTIVITY FOR ESTIMATED NUTRITIONAL NEEDS. 1. CONTINUE NEPRO WITH A NEW GOAL RATE OF 45 ML/HR WITH 150 ML FREE WATER FLUSH Q6H TOLERATED -PROVIDES 1944 KCAL AND 87 GM PROTEIN, MEETING 100% OF ESTIMATED NUTRITIONAL NEEDS 2. CONTINUE MARIAJOSE BID PER RD PROTOCOL 3. RD WILL F/U 3-5 DAYS; MODERATE RISK (DOWNGRADED D/T PT TOLERATING TF WELL) BRITNEY TREVINO RD
--- NOTE | 2021-12-04 12:18 | NUR ---
DIALYSIS AT BEDSIDE
[2021-12-04] MEDS ORDERED: ALBUMIN HUMAN 25% 50 ML IV SCH (13:55)
--- NOTE | 2021-12-04 14:03 | NUR ---
PT DESAT TO 76% WITH DECREASED BP. RT CALLED AT BEDSIDE. O2 SATURATION CURRENTLY @ 98%. CONTACTED MD REGARDING DECREASED BP. ORDER FOR ALBUMIN. ORDERS INPUTTED. PT BP 100/57. STAGE SET UP WORKER TRANSFUSING ALBUMIN IVPB. WILL MONITOR CLOSELY.
--- NOTE | 2021-12-04 14:45 | NUR ---
DIALYSIS COMPLETED AT BEDSIDE. 1.3L OUT. BP 103/72. HR 122. O2 SATURATION @ 98%.
[2021-12-04 17:17] VITALS: BP 100/62
--- NOTE | 2021-12-04 19:08 | NUR ---
BP 129/87, O2 SATURATION @ 100% ON 4L TRACH TO VENT. PT STABLE AT THIS TIME. WILL ENDORSE CONTINUITY OF CARE TO NIGHTSHIFT.
--- NOTE | 2021-12-04 19:30 | NUR ---
REPORT GIVEN TO NIGHTSHIFT RNJAMMIE FOR CONTINUITY OF CARE
[2021-12-04 20:00] VITALS: BP 131/90
--- NOTE | 2021-12-04 21:26 | NUR ---
SWITCHED PATIENT TO COOL AEROSOL AT 28% FIO2. SXNED THICK YELLOW SECRETIONS. SATS 100%
[2021-12-04] MEDS: MEROPENEM 1,000 MG in NACL 0.9% 50 ML IV SCH (22:36)
[2021-12-05] VITALS: BP 145/78
[2021-12-05] MEDS ORDERED: COLISTIMETHATE SODIUM 150 MG in NACL 0.9% 100 ML IV SCH (00:30)
[2021-12-05] MEDS ORDERED: COLISTIMETHATE SODIUM 150 MG VIAL ONE (00:45)
[2021-12-05 04:00] VITALS: BP 136/83
--- NOTE | 2021-12-05 07:16 | NUR ---
coly-mycin 150mg ivpb given at 0210 this morning. Chlorhexadine cloth used with routine care. They won't fall off mar but task has been completed
[2021-12-05 07:24] LABS: HEMATOCRIT 27.7 % (36-48); HEMOGLOBIN 8.9 g/dL (12.0-16.0); MEAN CORPUSCULAR HEMOGLOBIN 31 pg (27-31); MEAN CORPUSCULAR HGB CONC 32 g/dL (33-37); PLATELET COUNT (AUTO) 995 K/uL (140-450); RED BLOOD CELL COUNT(AUTO) 2.86 MIL/uL (4.20-5.40); RED CELL DISTRIBUTION WIDTH 20.4 % (11.6-13.7); WHITE BLOOD COUNT (AUTO) 16.3 K/uL (4.8-10.8)
[2021-12-05 07:39] LABS: ANION GAP 19.3 (8-16); CARBON DIOXIDE 23.4 mmol/L (21-32); CREATININE 3.8 mg/dL (0.6-1.3); POTASSIUM 3.7 mmol/L (3.5-5.1)
--- NOTE | 2021-12-05 07:42 | NUR ---
RECEIVED PT ON 28% COOL AEROSOL TO T-PIECE, TOLERATING WELL. SPO2 98%, HR 114, RR 18, B/S CRACKLES BILAT, SXN SMALL AMOUNT OF THICK YELLOW-WHITE SECRETIONS. NO SOB OR RESPIRATORY DISTRESS AT THIS TIME.
[2021-12-05 08:00] VITALS: BP 134/70
--- NOTE | 2021-12-05 08:00 | NUR ---
RECEIVED REPORT FROM NIGHTSHIFT RN. PT NONVERBAL. HOB ELEVATED. TRACH TO VENT ON 4L. IN NO DISTRESS. GTUBE FEEDING INFUSING. 3 ML RESIDUAL. IVF ON R THUMB #24 SL. PT RESTING. CONTRACTED. BILATERAL HEELS ON. NEEDS ALL MET AT THIS TIME. SAFETY MEASURES IN PLACE. WILL CONTINUE TO MONITOR CLOSELY.
--- NOTE | 2021-12-05 08:01 | NUR ---
ON NEGATIVE AIR PRESSURE ROOM FOR COVID
[2021-12-05] MEDS: COLISTIMETHATE SODIUM 35 MG in NACL 0.9% 100 ML IV SCH ×2 (09:00→21:50)
[2021-12-05] MEDS ORDERED: FOAM DRESSING TP SCH (09:00)
[2021-12-05] MEDS: MIDODRINE 5 MG TAB PO SCH (09:00)
--- NOTE | 2021-12-05 10:00 | NUR ---
PT AWAKE AND ALERT. TRACH TO VENT AT 4L. NO RESPIRATORY DISTRESS. NO GRIMACING. HOB ELEVATED. GTUBE RESIDUAL WITH 2 ML. GTUBE MEDICATIONS GIVEN VIA GTUBE WITH WATER FLUSH. RECONNECTED TO FEEDING. IVPB INFUSING. NEEDS ALL MET AT THIS TIME. SAFETY MEASURES IN PLACE.
[2021-12-05] MEDS: VIT-B COMP/VIT-C/FOLIC ACID 1 TAB PO SCH (10:08)
[2021-12-05] MEDS: levETIRAcetam 500 MG TAB GT SCH ×2 (10:09→21:40)
[2021-12-05] MEDS: METOPROLOL 25 MG TAB PO SCH ×2 (10:10→21:40)
[2021-12-05] MEDS: DEXAMETHASONE 10 MG/ML VIAL IVP SCH (10:11)
[2021-12-05 11:47] LABS: NUCLEATED RED BLOOD CELLS 0.2 /100WBC (0.0-0.0); PLATELET COUNT,MANUAL 995 K/uL (150-450)
[2021-12-05 11:53] LABS: BASOPHILS # (AUTO) 0.1 K/uL (0.00-0.22); BASOPHILS % (AUTO) 0.4 % (0.0-2.0); EOSINOPHILS # (AUTO) 0.1 K/uL (0-0.4); EOSINOPHILS % (AUTO) 0.6 % (0.0-4.0); LYMPHOCYTES # (AUTO) 1.8 K/uL (2.5-16.5); LYMPHOCYTES % (MANUAL) 10 % (20-46); MONOCYTES # (AUTO) 1.2 K/uL (0.8-1.0); MONOCYTES % (AUTO) 7.3 % (1.7-9.3); NEUTROPHILS # (AUTO) 13.2 K/uL (1.8-7.7); NEUTROPHILS % (AUTO) 80.7 % (42.2-75.2)
[2021-12-05 11:54] LABS: MONOCYTES % (MANUAL) 8 % (5-12)
[2021-12-05 12:00] VITALS: BP 120/64
[2021-12-05] MEDS ORDERED: ACETYLCYSTEINE 20% (200 MG/ML) 200 MG/ML VIAL INH SCH (13:00)
[2021-12-05] MEDS: ACETYLCYSTEINE 20% (200 MG/ML) 200 MG/ML VIAL INH SCH ×2 (13:00→20:00)
[2021-12-05] MEDS: HYDRAGUARD CREAM TP SCH (13:21)
[2021-12-05] MEDS: SKINTEGRITY HYDROGEL TP SCH (13:21)
--- NOTE | 2021-12-05 14:00 | NUR ---
HOB ELEVATED. GTUBE WITH 4 ML RESIDUAL. GTUBE FEEDING RESTARTED. NEEDS ALL MET. PT IN NO DISTRESS. SAFETY MEASURES IN PLACE.
[2021-12-05 16:00] VITALS: BP 126/67
--- NOTE | 2021-12-05 18:14 | NUR ---
PT ASLEEP. AFEBRILE. HOB ELEVATED. NO RESPIRATORY DISTRESS. ON 4L TRACH TO VENT WITH O2 SATURATION @ 98%. HOURLY ROUNDS CONDUCTED THROUGHOUT MY SHIFT.
--- NOTE | 2021-12-05 19:26 | NUR ---
REPORT GIVEN TO NIGHTSHIFT RN FOR CONTINUITY OF CARE.
[2021-12-05 20:00] VITALS: BP 120/78
--- NOTE | 2021-12-05 20:00 | NUR ---
2000 RECEIVE ON 4L TRACH TO VENT DROPLET PRECAUTION MAINTAINED
[2021-12-06] VITALS: BP 147/81
[2021-12-06] MEDS: HYDRAGUARD CREAM TP SCH ×2 (01:29→13:00)
[2021-12-06] MEDS: MEROPENEM 1,000 MG in NACL 0.9% 50 ML IV SCH (01:31)
[2021-12-06] MEDS: MUPIROCIN CA NASAL 2% 1GM TUBE NS SCH (01:32)
[2021-12-06] MEDS: CHLORHEXADINE GLUC 2% CLOTH TP SCH (02:00)
[2021-12-06] MEDS: ACETYLCYSTEINE 20% (200 MG/ML) 200 MG/ML VIAL INH SCH ×4 (02:20→19:15)
[2021-12-06] MEDS: ALBUTEROL SULFATE/IPRATROPIU 3 ML SOL IH SCH ×4 (02:20→19:15)
[2021-12-06 04:00] VITALS: BP 136/78
[2021-12-06 07:18] LABS: BASOPHILS # (AUTO) 0.1 K/uL (0.00-0.22)
[2021-12-06 07:20] LABS: BASOPHILS % (AUTO) 0.5 % (0.0-2.0); EOSINOPHILS # (AUTO) 0.3 K/uL (0-0.4); EOSINOPHILS % (AUTO) 1.3 % (0.0-4.0); HEMATOCRIT 28.3 % (36-48); HEMOGLOBIN 8.7 g/dL (12.0-16.0); LYMPHOCYTES # (AUTO) 2.9 K/uL (2.5-16.5); MEAN CORPUSCULAR HEMOGLOBIN 29 pg (27-31); MEAN CORPUSCULAR HGB CONC 31 g/dL (33-37); MEAN CORPUSCULAR VOLUME 95.9 fL (80-94); MONOCYTES % (AUTO) 4.7 % (1.7-9.3); NEUTROPHILS # (AUTO) 17.9 K/uL (1.8-7.7); PLATELET COUNT (AUTO) 889 K/uL (140-450); RED BLOOD CELL COUNT(AUTO) 2.95 MIL/uL (4.20-5.40); RED CELL DISTRIBUTION WIDTH 21.5 % (11.6-13.7); WHITE BLOOD COUNT (AUTO) 22.2 K/uL (4.8-10.8)
[2021-12-06 07:29] LABS: ANION GAP 22.6 (8-16); CARBON DIOXIDE 22.6 mmol/L (21-32); POTASSIUM 4.2 mmol/L (3.5-5.1)
[2021-12-06 07:51] LABS: NEUTROPHILS % (AUTO) 80.6 % (42.2-75.2)
[2021-12-06 07:52] LABS: LYMPHOCYTES % (AUTO) 12.9 % (20.5-51.1)
[2021-12-06] MEDS: MIDODRINE 5 MG TAB PO SCH (09:00)
[2021-12-06] MEDS: METOPROLOL 25 MG TAB PO SCH ×2 (10:49→20:52)
[2021-12-06] MEDS: DEXAMETHASONE 10 MG/ML VIAL IVP SCH (10:49)
[2021-12-06] MEDS: VIT-B COMP/VIT-C/FOLIC ACID 1 TAB PO SCH (10:50)
[2021-12-06] MEDS: levETIRAcetam 500 MG TAB GT SCH ×2 (10:51→20:52)
[2021-12-06] MEDS: COLISTIMETHATE SODIUM 35 MG in NACL 0.9% 100 ML IV SCH ×2 (10:55→20:55)
[2021-12-06] MEDS: SKINTEGRITY HYDROGEL TP SCH (13:00)
--- NOTE | 2021-12-06 19:30 | NUR ---
Received bedside report on patient from day shift nurse for continuity of care. Patient was awake, respiration is even and unlabored; tracheostomy to t-bar. No distress noted. Fistula noticed in left arm, g-tube feeding noted (running at 45 cc/hr). Right chest dialysis catheter, dressing dry and intact. Reviewed patient's plan and will continue with plan of care. IV was patent and intact. Safety assessment done. Bed at lowest position and call light was within reach. Will continue to monitor.
[2021-12-06 20:00] VITALS: BP 138/73
--- NOTE | 2021-12-06 20:52 | NUR ---
Manually scanned medications and patient id band. Verified with another nurse. Gave scheduled medications successfully. No issues observed. Checked patient's g-tube residual, obtained 5 cc of formula feeding.
--- NOTE | 2021-12-06 23:00 | NUR ---
Made rounds on patient. patient was awake, no distress noticed.
[2021-12-07] VITALS: BP 138/87
--- NOTE | 2021-12-07 01:30 | NUR ---
wound care was done on patient. dressing was changed.
[2021-12-07] MEDS: ACETYLCYSTEINE 20% (200 MG/ML) 200 MG/ML VIAL INH SCH ×3 (01:31→12:26)
[2021-12-07] MEDS: ALBUTEROL SULFATE/IPRATROPIU 3 ML SOL IH SCH ×3 (01:31→12:26)
[2021-12-07] MEDS: MUPIROCIN CA NASAL 2% 1GM TUBE NS SCH (02:12)
[2021-12-07] MEDS: HYDRAGUARD CREAM TP SCH ×2 (02:12→13:00)
[2021-12-07] MEDS: MEROPENEM 1,000 MG in NACL 0.9% 50 ML IV SCH (02:12)
[2021-12-07] MEDS: CHLORHEXADINE GLUC 2% CLOTH TP SCH (02:13)
--- NOTE | 2021-12-07 02:30 | NUR ---
tube feeding changed.
[2021-12-07 04:00] VITALS: BP 151/90
--- NOTE | 2021-12-07 04:15 | NUR ---
vitals were taken. no abnormal results noted.
--- NOTE | 2021-12-07 05:30 | NUR ---
provided oral care and suctioned patient. obtained white secretion from suction.
[2021-12-07 07:29] LABS: BASOPHILS % (AUTO) 0.2 % (0.0-2.0); EOSINOPHILS # (AUTO) 0.2 K/uL (0-0.4); EOSINOPHILS % (AUTO) 0.9 % (0.0-4.0); HEMATOCRIT 24.1 % (36-48); HEMOGLOBIN 7.9 g/dL (12.0-16.0); LYMPHOCYTES # (AUTO) 1.7 K/uL (2.5-16.5); MEAN CORPUSCULAR HEMOGLOBIN 31 pg (27-31); MEAN CORPUSCULAR HGB CONC 33 g/dL (33-37); MEAN CORPUSCULAR VOLUME 94.9 fL (80-94); MONOCYTES # (AUTO) 0.9 K/uL (0.8-1.0); NEUTROPHILS # (AUTO) 14.4 K/uL (1.8-7.7); NEUTROPHILS % (AUTO) 83.9 % (42.2-75.2); PLATELET COUNT (AUTO) 814 K/uL (140-450); RED BLOOD CELL COUNT(AUTO) 2.54 MIL/uL (4.20-5.40); WHITE BLOOD COUNT (AUTO) 17.2 K/uL (4.8-10.8)
--- NOTE | 2021-12-07 07:30 | NUR ---
ENDORSED PATIENT TO DAY SHIFT NURSE FOR CONTINUITY OF CARE.
[2021-12-07 07:47] LABS: ANION GAP 22.7 (8-16); CARBON DIOXIDE 20.7 mmol/L (21-32); POTASSIUM 4.4 mmol/L (3.5-5.1)
[2021-12-07] MEDS ORDERED: PANTOPRAZOLE 40 MG INJ VIAL IVP SCH (09:00)
[2021-12-07] MEDS: METOPROLOL 25 MG TAB PO SCH (09:00)
[2021-12-07] MEDS: EPOETIN ALFA-EPBX 10,000 UNITS/ML VIAL SUBQ SCH (09:00)
[2021-12-07] MEDS: VIT-B COMP/VIT-C/FOLIC ACID 1 TAB PO SCH (09:00)
[2021-12-07] MEDS ORDERED: IV Meropenam IV (09:12)
[2021-12-07] MEDS ORDERED: COLI150P4 IV (09:12)
[2021-12-07] MEDS ORDERED: INSU100S5 SUBQ (09:12)
[2021-12-07] MEDS ORDERED: ALBUMIN HUMAN 25% 100 ML IV SCH (09:30)
[2021-12-07] MEDS ORDERED: ALBUMIN HUMAN 25% 50 ML IV SCH (11:30)
[2021-12-07] MEDS: SKINTEGRITY HYDROGEL TP SCH (13:00)
--- NOTE | 2021-12-07 13:00 | NUR ---
PT KNOCKS THE T-PIECE OFF, MONITOR CLOSELY.
[2021-12-07] MEDS: MIDODRINE 5 MG TAB PO SCH (14:59)
[2021-12-07] MEDS: levETIRAcetam 500 MG TAB GT SCH (15:01)
[2021-12-07] MEDS: DEXAMETHASONE 10 MG/ML VIAL IVP SCH (15:01)
[2021-12-07] MEDS: COLISTIMETHATE SODIUM 35 MG in NACL 0.9% 100 ML IV SCH (15:05)
== END 2021-12-07 18:05 | DRG 871 ==
LOC: MED 20:47 → MTU 11-29 01:41 → OBSVTOIN 12-01 17:21
PROVIDERS: ADMIT Student in an Organized Health Care Education/Training Program; ATTEND Student in an Organized Health Care Education/Training Program
DX: A41.89 Other specified sepsis (principal); L89.154 Pressure ulcer of sacral region, stage 4; U07.1 COVID-19; N18.6 End stage renal disease; E43 Unspecified severe protein-calorie malnutrition; J12.82 Pneumonia due to coronavirus disease 2019; N17.0 Acute kidney failure with tubular necrosis; I50.33 Acute on chronic diastolic (congestive) heart failure; J96.20 Acute and chronic respiratory failure, unspecified whether with hypoxia or hypercapnia; E87.1 Hypo-osmolality and hyponatremia; I13.2 Hypertensive heart and chronic kidney disease with heart failure and with stage 5 chronic kidney disease, or end stage renal disease; Z68.1 Body mass index [BMI] 19.9 or less, adult; I25.10 Atherosclerotic heart disease of native coronary artery without angina pectoris; K74.60 Unspecified cirrhosis of liver; K80.20 Calculus of gallbladder without cholecystitis without obstruction; Y95 Nosocomial condition; R13.10 Dysphagia, unspecified; E83.52 Hypercalcemia; F03.90 Unspecified dementia, unspecified severity, without behavioral disturbance, psychotic disturbance, mood disturbance, and anxiety; D75.839 Thrombocytosis, unspecified; D63.8 Anemia in other chronic diseases classified elsewhere; Z88.0 Allergy status to penicillin; Z79.891 Long term (current) use of opiate analgesic; Z79.899 Other long term (current) drug therapy; Z99.2 Dependence on renal dialysis
CPT/HCPCS: 99285; G0378; 36415; 70450; 71045; 73080; 76705; 80048; 80053; 82728; 83540; 83605; 83735; 83880; 84100; 84484; 85025; 86803; 87040; 87070; 87081; 87205; 87340; 89220; 90935; 93005; 94640; J0360; J0770; J1100; J1644; J1650; J2185; J2543; J7060; J7608; P9046; Q0092; Q5106

== ENCOUNTER 2022-02-03 17:30 | Inpatient (IN) | payer OTHER ==
[~2022-02-03] VITALS: Ht 149.9 cm; Wt 73.5 kg
[~2022-02-03 17:30] MED LIST: ACET-1194 PO; ALBU0.0912 INH; ATI.5 PO; BISO5TAB23 PO; CALC667T8 PO; CHLO473S62 PO; CLON0.1T16 PO; HEPA500056 SQ; HYDR-5080 PO; INSU100S5 SUBQ; IV Meropenam IV; IV Vancomycin IV; LACO150T PO; NUTR887L PO; OMEP-100 PO; PRO5 PO; VITA1TAB44 PO
--- NOTE | 2022-02-03 18:45 | NUR ---
RECEIVED PT BY EMS, TRANSFER FROM [facility] IN STABLE CONDITION. REPORT GIVEN BY EMRE TELLEZ ([phone]). PT HAS A RIGHT FEMORAL PERMACATH, LEFT UPPER CHEST DOUBLE LUMEN, AND GTUBE. REPORTED PT IS ANURIC. LEFT ARM S/P FOR AV SHUNT INFECTION, STITCHES IN PLACE. PICTURES TAKEN, EMULSION AND KERLIX PLACED ON PT. DRESSING CHANGE TO RIGHT WRIST, ABRASION, WOUND PICTURE TAKEN. PT ON HEEL PROTECTORS. NO BP ON LEFT ARM, SIGN POSTED. PT WEARING HELMET FOR CRANIOTOMY. PT ON ROOM AIR WITH CHEST RISING AND FALLING EVEN AND UNLABORED. PLACED ON TELE MONITOR SHOWING SINUS RHYTHM AT 82. NEW IV PLACED TO RIGHT HAND 22G. BEDBOUND WITH BILATERAL CONTRACTURES. VSS. MRSA SCREEN COLLECTED. PENDING ORDERS FROM MD FOR POC. PER CHARGE, WILL ENDORSE CONTINUITY OF CARE AND ADMISSION TO [employer]UFA[employer]ING [employer]JECT MANAGER. PT IS CURRENTLY STABLE.
[2022-02-03 19:10] LABS: BASOPHILS # (AUTO) 0.1 K/uL (0.00-0.22); BASOPHILS % (AUTO) 0.9 % (0.0-2.0); EOSINOPHILS # (AUTO) 0.8 K/uL (0-0.4); EOSINOPHILS % (AUTO) 12.2 % (0.0-4.0); HEMATOCRIT 23.6 % (36-48); HEMOGLOBIN 7.3 g/dL (12.0-16.0); LYMPHOCYTES # (AUTO) 1.1 K/uL (2.5-16.5); LYMPHOCYTES % (AUTO) 17.6 % (20.5-51.1); MEAN CORPUSCULAR HEMOGLOBIN 28 pg (27-31); MEAN CORPUSCULAR HGB CONC 31 g/dL (33-37); MEAN CORPUSCULAR VOLUME 91.8 fL (80-94); MONOCYTES # (AUTO) 0.6 K/uL (0.8-1.0); MONOCYTES % (AUTO) 9.4 % (1.7-9.3); NEUTROPHILS # (AUTO) 3.8 K/uL (1.8-7.7); NEUTROPHILS % (AUTO) 59.9 % (42.2-75.2); PLATELET COUNT (AUTO) 379 K/uL (140-450); RED BLOOD CELL COUNT(AUTO) 2.57 MIL/uL (4.20-5.40); RED CELL DISTRIBUTION WIDTH 18.9 % (11.6-13.7); WHITE BLOOD COUNT (AUTO) 6.4 K/uL (4.8-10.8)
[2022-02-03 19:19] LABS: ANION GAP 15.6 (8-16); CARBON DIOXIDE 26.2 mmol/L (21-32); CREATININE 3.3 mg/dL (0.6-1.3); POTASSIUM 3.8 mmol/L (3.5-5.1)
--- NOTE | 2022-02-03 19:30 | NUR ---
RECEIVED BEDSIDE REPORT FROM DAY SHIFT RN FOR CONTINUITY OF CARE. PT IS AWAKE ON RA. PT IS APHASIC. PT HAS HELMET ON FROM PREVIOUS CRANIOTOMY. PT HAS RIGHT FEMORAL PERMACATH AND LEFT UPPER CHEST DOUBLE LUMEN. PT HAS RIGHT HAND 22 GAUGE. S/P VASCULAR SURG ON LEFT ARM. STITCHES IN PLACE. PT HAS RIGHT ABRASION ON ARM/WRIST. PT HAS SACRAL WOUND AND WOUND ON BILATERAL FEET. PT ON HEEL PROTECTOR. PT HAS G-TUBE WITH NO FEEDINGS AT THIS TIME. PT IS BEDBOUND. WILL CONTINUE TO MONITOR THE PT.
[2022-02-03 20:00] VITALS: BP 151/66
--- NOTE | 2022-02-03 23:45 | NUR ---
PT OBSERVED. PT ASLEEP. PT IS NOT IN ANY ACUTE DISTRESS. FEEDING STARTED. PT SHOWS NO SIGNS OF PAIN. BED AT THE LOWEST POSITION. HEAD OF BED RAISED. WILL CONTINUE TO MONITOR THE PT.
[2022-02-04] VITALS: BP 127/61
--- NOTE | 2022-02-04 01:34 | NUR ---
PT OBSERVED. PT IS AWAKE. PT NOT IN ANY DISTRESS. BREATHING EVEN AND UNLABORED. FEEDING RUNNING PER MD ORDER. IV INTACT AND PATENT. BED AT THE LOWEST POSITION. WILL CONTINUE TO MONITOR THE PT.
--- NOTE | 2022-02-04 03:55 | NUR ---
PT WAS CLEANED AND CHANGED. PT HAD A BM. FEEDING RESTARTED. PT NOT IN ANY ACUTE DISTRESS. BED AT THE LOWEST POSITION WITH HEAD OF THE BED RAISED. WILL CONTINUE TO MONITOR THE PT.
[2022-02-04 04:00] VITALS: BP 128/62
--- NOTE | 2022-02-04 07:21 | NUR ---
ENDORSED PT TO DAY SHIFT RN FOR CONTINUITY OF CARE. PT IS STABLE.
[2022-02-04 07:29] LABS: BASOPHILS # (AUTO) 0.1 K/uL (0.00-0.22)
--- NOTE | 2022-02-04 07:30 | NUR ---
OPENING NOTE: REPORT RCVD FROM OUTGOING NOC RN, ALL CARES ASSUMED.
[2022-02-04 07:33] LABS: MEAN CORPUSCULAR HEMOGLOBIN 28 pg (27-31); MEAN CORPUSCULAR HGB CONC 31 g/dL (33-37); MONOCYTES # (AUTO) 0.5 K/uL (0.8-1.0)
[2022-02-04 07:36] LABS: ALBUMIN 2.7 g/dL (3.4-5.0); ANION GAP 15.1 (8-16); CREATININE 3.8 mg/dL (0.6-1.3); POTASSIUM 4.1 mmol/L (3.5-5.1); TOTAL BILIRUBIN 0.4 mg/dL (0.0-1.0)
[2022-02-04 08:00] VITALS: BP 138/63
[2022-02-04 08:15] LABS: HEMATOCRIT 26.5 % (36-48); HEMOGLOBIN 8.1 g/dL (12.0-16.0); LYMPHOCYTES % (AUTO) 16.2 % (20.5-51.1); MEAN CORPUSCULAR VOLUME 92.4 fL (80-94); NEUTROPHILS % (AUTO) 59.6 % (42.2-75.2); PLATELET COUNT (AUTO) 383 K/uL (140-450); RED BLOOD CELL COUNT(AUTO) 2.87 MIL/uL (4.20-5.40); RED CELL DISTRIBUTION WIDTH 19.1 % (11.6-13.7); WHITE BLOOD COUNT (AUTO) 6.4 K/uL (4.8-10.8)
[2022-02-04 08:16] LABS: EOSINOPHILS % (AUTO) 14.8 % (0.0-4.0); MONOCYTES % (AUTO) 8.4 % (1.7-9.3); NEUTROPHILS # (AUTO) 3.8 K/uL (1.8-7.7)
--- NOTE | 2022-02-04 08:19 | NUR ---
PRIMARY MD MAKING ROUNDS BEDSIDE REPORT GIVEN. MD HAS REQUESTED RECORDS FROM [facility].
--- NOTE | 2022-02-04 10:10 | NUR ---
PATIENT HAS BEEN SCREENED AND CATEGORIZED HIGH NUTRITION RISK. PATIENT WILL BE SEEN WITHIN 1-2 DAYS OF ADMISSION. ROQUE TREVINO RD Addendum: 02/04/22 at [address] REFERRAL RECEIVED FOR DYSPHAGIA, TUBE FEEDING AND PRESSURE INJURY
--- NOTE | 2022-02-04 11:41 | NUR ---
COVID SWAB COLLECTED AND BROUGHT TO LAB
[2022-02-04 12:00] VITALS: BP 154/68
--- NOTE | 2022-02-04 12:49 | NUR ---
DC PLANNING: THE PATIENT WAS TRANSFERRED [place] [facility] [place] FOR REMOVAL OF INFECTED AV FISTULA. PATIENT WAS RETURNED FROM [facility] YESTERDAY WITH AV REMOVED, STILL HAS A FEMORAL VERONICA CATH. THE PATIENT RESIDES AT [facility] AND GOES TO [facility] AT 1430. COVID PCR PENDING, PATIENT STILL LARGE ST 4 SACRAL DECUBITUS. PATIENT WITH G-TUBE. ORDERS FOR CONSULTS WITH PULMONOLOGY AND SURGERY. PLAN IS FOR THE PATIENT TO RETURN TO [facility] WHEN CLINICALLY STABLE, CM WILL FOLLOW. Addendum: 02/05/22 at 1600 by Cecilia Mendez CM DC PLANNING: CLINICAL PACKET FAXED TO [facility], PATIENT PENDING SURGICAL CONSULT FOR STAGE 4 SACRAL DECUBITUS. CM WILL FOLLOW. Addendum: 02/09/22 at 1049 by Cecilia Mendez CM DC PLANNING: UPDATED NOTES FAXED TO [facility]. PATIENT ACCEPTED TO ROOM MD Ron PENDING. FACILITY WILL ASSIST WITH TRANSPORT AND WILL CONTACT CM WITH THAT INFORMATION. NUMBER TO CALL REPORT IS [phone]. CM WILL FOLLOW. Addendum: 02/09/22 at 1345 by Cecilia Mendez DC PLANNING: PATIENT WILL BE PICKED UP BETWEEN 1500 AND 1600 BY [employer] ([phone]). CM WILL FOLLOW.
--- NOTE | 2022-02-04 12:56 | NUR ---
MED REC COMPLETED, PRIMARY MD MADE AWARE TO REVIEW AND CONTINUE.
--- NOTE | 2022-02-04 13:30 | NUR ---
NEPHRO MD MAKING ROUNDS, BEDSIDE REPORT GIVEN, MD TO REVIEW CHART AND PLACE ORDERS FOR HD.
[2022-02-04] MEDS ORDERED: HYDROcodone/APAP 7.5/325 MG 1 TAB PO PRN (13:50)
[2022-02-04] MEDS ORDERED: ACETAMINOPHEN EXTRA STRENGTH 500 MG TAB PO PRN (13:50)
--- NOTE | 2022-02-04 14:22 | NUR ---
02/04/22 RD INITIAL ASSESSMENT COMPLETED PLEASE REFER TO NUTRITION ASSESSMENT UNDER CARE ACTIVITY FOR ESTIMATED NUTRITIONAL NEEDS. 1. CONTINUE NEPRO@40 ML FWF 100 Q8H TOLERATED -CONTINUE MARIAJOSE BID OR PROSOURCE TID PER RD PROTOCOL -WITH PROSOURCE TID PT WILL RECEIVE 1848 KCAL AND 111 GRAMS OF PROTEIN, MEETING 100% ESTIMATED NUTRIENT NEEDS. 2. RD WILL MONITOR NUTRITION RELATED LAB VALUES. 3. RD TO FOLLOW-UP 2-3 DAYS, HIGH RISK REVIEWED BY BRITNEY TREVINO RD
--- NOTE | 2022-02-04 14:51 | NUR ---
RN ROUNDS BED BATH GIVEN, NEW LINENS AND GOWN APPLIED. PATIENT IN NO ACUTE DISTRESS AND OR DISCOMFORT. WOUND CARE COMPLETED. BED LOW AND LOCKED FOR SAFETY, ALL PRECAUTIONS IN PLACE.
[2022-02-04 16:00] VITALS: BP 144/78
--- NOTE | 2022-02-04 16:40 | NUR ---
LAB NOTIFICATION : PATIENT REMAINS COVID + ON PCR TEST
--- NOTE | 2022-02-04 16:57 | NUR ---
ID MAKING ROUNDS, PER MD COVID ISOLATION CAN BE D/C - CHARGE MADE AWARE.
[2022-02-04] MEDS: MIDODRINE 5 MG TAB PO SCH (17:46)
[2022-02-04] MEDS: VANCOMYCIN HCL 25 MG/ML SOLN GT SCH (17:46)
--- NOTE | 2022-02-04 18:55 | NUR ---
CLOSING NOTE: REPORT GIVEN TI INCOMING NOC RN, ALL CARES ENDORSED.
--- NOTE | 2022-02-04 19:30 | NUR ---
RECEIVED BEDSIDE REPORT FROM DAY SHIFT RN FOR CONTINUITY OF CARE. PT IS AWAKE ON RA. PT IS APHASIC. PT HAS HELMET ON FROM PREVIOUS CRANIOTOMY. PT HAS RIGHT FEMORAL PERMACATH AND LEFT UPPER CHEST DOUBLE LUMEN. PT HAS RIGHT HAND 22 GAUGE. S/P VASCULAR SURG ON LEFT ARM. STITCHES IN PLACE. PT HAS RIGHT ABRASION ON ARM/WRIST. PT HAS SACRAL WOUND AND WOUND ON BILATERAL FEET. PT ON HEEL PROTECTOR. PT HAS G-TUBE WITH FEEDING NEPHRO 40CC/HR, 100 ML WATER FLUSH Q8H. PT IS BEDBOUND. WILL CONTINUE TO MONITOR THE PT.
[2022-02-04 20:00] VITALS: BP 147/89
--- NOTE | 2022-02-04 20:50 | NUR ---
ALL DUE MEDS GIVEN. NO ADVERSE REACTION NOTED. PT NOT IN ANY DISTRESS. FEEDING RUNNING PER MD ORDER. WILL CONTINUE TO MONITOR THE PT.
[2022-02-05] VITALS: BP 159/85
[2022-02-05] MEDS: VANCOMYCIN HCL 25 MG/ML SOLN GT SCH ×4 (01:23→18:17)
--- NOTE | 2022-02-05 02:02 | NUR ---
OBSERVED PT. PT IS ASLEEP. PT IS NOT IN ANY ACUTE DISTRESS. VISIBLE CHEST RISE AND FALL. BED AT THE LOWEST POSITION. HEAD OF BED RAISED. WILL CONTINUE TO MONITOR THE PT.
--- NOTE | 2022-02-05 03:30 | NUR ---
PT REMOVED IV ON RIGHT HAND. CATHETER INTACT. ATTEMPTED SEVERAL IV INSERTION WITH NO SUCCESS.
[2022-02-05 04:00] VITALS: BP 158/80
--- NOTE | 2022-02-05 04:30 | NUR ---
PT WAS CLEANED AND CHANGED. PT HAD BM. FEEDING RUNNING ORDER. WILL CONTINUE TO MONITOR THE PT.
--- NOTE | 2022-02-05 07:32 | NUR ---
RECEIVED REPORT FROM NIGHTSHIFT NURSE CARINA FOR CONTINUITY OF CARE. PT IS APHASIC WITH SPONTANEOUS EYE MOVEMENT. PT IS BREATHING EVEN, REGULAR AND UNLABORED ON ROOM AIR, PAST TRACH INCISION CLEAN AND DRY. PT IS INCONTINENT OF THE BOWEL AND BLADDER, WITH WATERY DIARRHEA. PT BEDBOUND, PRESSURE INJURIES NOTED ON SACRUM, FEET, RIGHT UPPER EXTREMITY, AND SURGICAL SUTURES NOTED ON LEFT UPPER EXTREMITY. PERMACATH FOR DIALYSIS NOTED IN LEFT UPPER CHEST, OLD RIGHT FEMORAL VERONICA CATH NOTED. PT IS ON G-TUBE FEEDING, NEPRO 40ML/HR. NO RESIDUAL NOTED. PT IN STABLE CONDITION.
--- NOTE | 2022-02-05 07:32 | NUR ---
ENDORSED PT TO DAY SHIFT RN FOR CONTINUITY OF CARE. PT IS STABLE.
[2022-02-05 08:00] VITALS: BP 163/56
[2022-02-05] MEDS: MIDODRINE 5 MG TAB PO SCH (08:48)
[2022-02-05] MEDS: LORazepam 0.5 MG TAB PO SCH (08:49)
[2022-02-05] MEDS: VIT-B COMP/VIT-C/FOLIC ACID 1 TAB PO SCH (08:49)
--- NOTE | 2022-02-05 09:00 | NUR ---
BED BATH AND LINEN CHANGE PERFORMED. CHANGED DRESSING ON SACRAL PI. MINOR DRAINAGE NOTED.
[2022-02-05 09:58] LABS: BASOPHILS # (AUTO) 0.1 K/uL (0.00-0.22); EOSINOPHILS # (AUTO) 1.4 K/uL (0-0.4); EOSINOPHILS % (AUTO) 16.4 % (0.0-4.0); HEMOGLOBIN 8.5 g/dL (12.0-16.0); LYMPHOCYTES # (AUTO) 1.4 K/uL (2.5-16.5); LYMPHOCYTES % (AUTO) 16.5 % (20.5-51.1); MEAN CORPUSCULAR HEMOGLOBIN 28 pg (27-31); MEAN CORPUSCULAR HGB CONC 31 g/dL (33-37); MEAN CORPUSCULAR VOLUME 90.5 fL (80-94); MONOCYTES # (AUTO) 0.8 K/uL (0.8-1.0); MONOCYTES % (AUTO) 9.4 % (1.7-9.3); NEUTROPHILS # (AUTO) 4.7 K/uL (1.8-7.7); NEUTROPHILS % (AUTO) 56.7 % (42.2-75.2); PLATELET COUNT (AUTO) 412 K/uL (140-450); RED BLOOD CELL COUNT(AUTO) 2.99 MIL/uL (4.20-5.40); RED CELL DISTRIBUTION WIDTH 18.8 % (11.6-13.7); WHITE BLOOD COUNT (AUTO) 8.3 K/uL (4.8-10.8)
[2022-02-05 10:14] LABS: ALBUMIN 2.7 g/dL (3.4-5.0); ANION GAP 16.3 (8-16); CARBON DIOXIDE 26.8 mmol/L (21-32); POTASSIUM 4.1 mmol/L (3.5-5.1); TOTAL BILIRUBIN 0.4 mg/dL (0.0-1.0)
[2022-02-05 10:35] LABS: CREATININE 5.2 mg/dL (0.6-1.3)
--- NOTE | 2022-02-05 11:19 | NUR ---
WOUND CARE NOTE: SKIN ASSESSMENT DONE WITH THIS 56 Y/O WITH S/P AV SHUNT GRAFT INFECTION TRANSFERRED BACK FROM [facility] FOR S/P GRAFT REMOVAL. PT. ADMITTED WITH MULTIPLE PRESSURE INJURIES UN-STAGEABLE. MULTIPLE CENTRAL LINES/CATH. DRESSING SOILING AND LOOSE. DURING ASSESSMENT FOUND PT. WITH LOOSE WATERY BM. POC DISCUSSED WITH PRIMARY RN TO REPLACE CENTRAL LINE DRESSING. POC DISCUSSED WITH DR. MUNOZ, RECOMMEND SURGEON CONSULT FOR SACRAL COCCYX WOUND DEBRIDEMENT. INTEGUMENTARY: -OLD TRACH SITE DRY STABLE SCAB, 0.5X1CM, MILLIE WOUND SKIN INTACT -LEFT EAR, BROWN SCAB 0.5X0.5CM -GT MILLIE STOMA SKIN RED, MOIST, INTACT -IAD TO PERINEUM, MILLIE ANAL, SKIN RED AND MOIST -PRESSURE INJURY UN-STAGEABLE LEFT LATERAL FOOT TO 5TH METATARSAL 2X1.5CM DRY STABLE BLACK ESCHAR TISSUE -PRESSURE INJURY UN-STAGEABLE LEFT MEDIAL FOOT FROM MILLIE-ANKLE(1X1.5CM) TO FIRST DIGIT TOE (0.5X0.5CM) WITH LARGEST TO MID FOOT AREA 2X1.5 CM DRY STABLE BLACK ESCHAR TISSUE -PRESSURE INJURY UN-STAGEABLE LEFT HEEL 3X4 CM DRY STABLE BLACK ESCHAR TISSUE MILLIE-WOUND SKIN MUSHY, NON-BLANCHABLE, FURTHER DAMAGE INDICATED - PRESSURE INJURY UN-STAGEABLE RIGHT LATERAL FOOT MULTIPLE DRY WOUNDS FROM LATERAL FOOT (1X1CM) TO 5TH DIGIT TOE 3X2.5CM - PRESSURE INJURY UN-STAGEABLE RIGHT 1ST METATARSAL HEAD 2X1CM, MILLIE WOUND SKIN DRY, SCALY SKIN - PRESSURE INJURY UN-STAGEABLE RIGHT ACHILLES AREA, 2X1.5 CM DRY STABLE BLACK ESCHAR TISSUE MILLIE-WOUND SKIN MUSHY, NON-BLANCHABLE, FURTHER DAMAGE INDICATED -PRESSURE INJURY STAGE 4, SACRO COCCYX [id number], UNDERMINING DEEPEST TO 12 OCLOCK 4CM, WOUND BED 100% RED GRANULATION TISSUE, MODERATE AMOUNT SEROUS DRAINAGE, NO ODOR, MILLIE-WOUND SKIN AT SACRAL AREA WITH UN-STAGEABLE 100 % KOENIG/YELLOW SLOUGH TISSUE, 4X6CM, SMALL AMOUNT PURULENT DRAINAGE WITH NO ODOR. -PRESSURE INJURY UN-STAGEABLE RIGHT 1ST METATARSAL HEAD 2X1CM, MILLIE WOUND SKIN DRY, SCALY SKIN -LEFT ARM SURGICAL WOUNDS WITH 4 SITES SUTURE LINES, 3 SITES ARE CLEAN AND SUTURE INTACT, ONE SITE TO LEFT ELBOW WOUND DEHISCENCE OPEN WOUND WITH PARTIAL SUTURES INTACT AND A FULL THICKNESS SKIN LOSS,4X1X0.5CM, WOUND BED RED GRANULATION TISSUE WITH SMALL AMOUNT SEROSANGUINEOUS DRAINAGE, NO ODOR, MILLIE WOUND SKIN DRY, DRY, OLD, HEALED SCARS AND INTACT. -RIGHT WRIST SKIN TEAR 1X1X0.1CM WOUND BED YELLOW, DRY AND NO ODOR, MILLIE WOUND SKIN THIN AND EASILY TO TORN. -BILATERAL LOWER LEGS MULTIPLE DRY SCAB RECOMMENDATIONS: -APPLY FLEXSEAL PER MANUFACTURE GUIDELINE -CLEANSE LEFT ELBOW WOUND WITH NS. PAT DRY, APPLY ALGINATE DRESSING AND COVER WITH DRY DRESSING Q3D AND PRN IF SOILING. -APPLY DRY DRESSING TO LEFT UPPER EXTREMITY SUTURES LINE QD AND PRN IF SOILING OIL EMULSION DRESSING AND COVER WITH DRY DRESSING QD AND PRN IF SOILING -APPLY HYDRAGUARD TO R/L GROINS EXTENDED TO PERINEUM BID AND PRN IF SOILING -PAINT MULTIPLE UN-STAGEABLE WOUNDS TO LEFT AND RIGHT FEET, LEFT HEEL, RIGHT ACHILLES, LEFT MEDIAL ANKLE BID AND TRAIN CONDUCTOR, HEEL RAISERS AT ALL TIMES -CLEANSE SACRALCOCCYX, LEFT ELBOW AND RIGHT WRIST WITH WOUND CLEANSING SOLUTION AND APPLY WITH ONE PIECE ALGINATE DRESSING, COVER WITH DRY DRESSING CHANGE Q3D AND PRN IF SOILING -POSITIONING: TURN AND REPOSITION PATIENT Q 2H OR SOONER USE PILLOWS TO KEEP BONY PROMINENCES FROM DIRECT CONTACT WITH SURFACES USE REPOSITIONING WEDGES TO PROVIDE 30-DEGREE ANGLE FOR SIDE LYING POSITIONS OFFLOADING OR FOAM DRESSING TO ALL TUBING TO PREVENT MEDICAL DEVICES RELATED PRESSURE INJURY -RE-EVALUATING AND MANAGING INCONTINENCE MONITOR SKIN CONDITION DURING POSITION CHANGE DO NOT MASSAGE REDNESS, BONY PROMINENCES FREQUENT MILLIE-CARE AND PROVIDE BARRIER CREAMS PRN IF SOILING MOISTURE CONTROL BY OFFER BED BELTRÁN/URINAL /ABSORBENT PAD TO WICK AND HOLD MOISTURE KEEP SKIN DRY AND PROTECT FROM FRICTION -MANAGE FRICTION/SHEAR/MOBILITY KEEP HOB AT THE LOWEST LEVEL OF ELEVATION NO MORE THAN 30 DEGREES UNLESS OTHERWISE CONTRAINDICATED USE LIFT SHEET OR TRANSFER DEVICE TO MOVE PATIENT AND PREVENT LATERAL SHEER. PROTECT HEELS, ELBOWS BONY PROMINENCES WITH SKIN BERRIES OR FOAM DRESSING IF EXPOSED TO FRICTION OFFLOAD BILATERAL HEELS BY PLACING PILLOWS UNDER CALVES AT ALL TIMES, UNLESS OTHERWISE CONTRAINDICATED -PRESSURE REDISTRIBUTION SURFACE THERAPY WICHO ISOFLEX JUNI MATTRESS -NUTRITION: PLEASE FOLLOW RD RECOMMENDATIONS AND OFFER NUTRITION SUPPLEMENTS IF ORDERED.
[2022-02-05 12:00] VITALS: BP 166/85
--- NOTE | 2022-02-05 12:00 | NUR ---
HD NURSE AT THE BEDSIDE, VERBAL CONSENT GIVEN VIA OVER TELEPHONE.
[2022-02-05] MEDS ORDERED: GAUZE TP PRN (13:00)
[2022-02-05] MEDS: GAUZE TP SCH ×2 (13:00)
[2022-02-05] MEDS ORDERED: ALGINATE DRESSING MC SCH ×2 (13:00→15:00)
[2022-02-05] MEDS ORDERED: HYDRAGUARD CREAM TP PRN (13:00)
[2022-02-05 16:00] VITALS: BP 116/61
[2022-02-05] MEDS: HYDRAGUARD CREAM TP SCH (17:00)
--- NOTE | 2022-02-05 17:00 | NUR ---
SPECIALTY AIR MATTRESS ARRIVED ON UNIT. PT TRANSFERRED TO NEW BED, BED BATH GIVEN.
--- NOTE | 2022-02-05 19:07 | NUR ---
ENDORSED PT TO NIGHTSPRFT NURSE SUZIE FOR CONTINUITY OF CARE. PT IN STABLE CONDITION.
[2022-02-05 20:00] VITALS: BP 141/89
--- NOTE | 2022-02-05 20:00 | NUR ---
OPENING NOTE PT IS AWAKE AND AOX0, DOES NOT EVEN RESPOND TO HER NAME. PT IS ON RA. PT IS APHASIC. PT HAS HELMET ON FROM PREVIOUS CRANIOTOMY. PT HAS NO F/C AND IS INCONT OF BOWEL AND BLADDER. HAS RIGHT FEMORAL PERMACATH AND LEFT UPPER CHEST DOUBLE LUMEN. PT HAS NO IV ACCESS AT THIS TIME S/P VASCULAR SURG ON LEFT ARM. STITCHES IN PLACE. PT HAS RIGHT ABRASION ON ARM/WRIST. PT HAS SACRAL WOUND AND WOUND ON BILATERAL FEET. PT ON HEEL PROTECTOR. PT HAS G-TUBE WITH FEEDING NEPHRO 40CC/HR, 100 ML WATER FLUSH Q8H. PT IS BEDBOUND AND CONTRACTED. ALL SAFETY MEASURES IN PLACE WILL CONTINUE TO MONITOR THE PT.
[2022-02-06] VITALS: BP 143/82
[2022-02-06] MEDS: VANCOMYCIN HCL 25 MG/ML SOLN GT SCH ×5 (01:05→23:34)
[2022-02-06] MEDS: HYDRAGUARD CREAM TP SCH ×2 (01:06→13:00)
[2022-02-06 04:00] VITALS: BP 138/87
[2022-02-06 07:29] LABS: ALBUMIN 2.5 g/dL (3.4-5.0); ANION GAP 11.8 (8-16); CARBON DIOXIDE 28.2 mmol/L (21-32); CREATININE 2.9 mg/dL (0.6-1.3); TOTAL BILIRUBIN 0.3 mg/dL (0.0-1.0)
--- NOTE | 2022-02-06 07:30 | NUR ---
RECEIVED REPORT FROM NIGHTSWAFT NURSE LARSEN FOR CONTINUITY OF CARE. PT IS APHASIC WITH SPONTANEOUS EYE MOVEMENT. PT IS BREATHING EVEN, REGULAR AND UNLABORED ON ROOM AIR, PAST TRACH INCISION CLEAN AND DRY. PT IS INCONTINENT OF THE BOWEL AND BLADDER, WITH WATERY DIARRHEA. PT BEDBOUND, PRESSURE INJURIES NOTED ON SACRUM, FEET, RIGHT UPPER EXTREMITY, AND SURGICAL SUTURES NOTED ON LEFT UPPER EXTREMITY. PERMACATH FOR DIALYSIS NOTED IN LEFT UPPER CHEST, OLD RIGHT FEMORAL VERONICA CATH NOTED. PT IS ON G-TUBE FEEDING, NEPRO 40ML/HR. NO RESIDUAL NOTED. PT IN STABLE CONDITION.
[2022-02-06 08:00] VITALS: BP 144/86
[2022-02-06 08:13] LABS: BASOPHILS # (AUTO) 0.1 K/uL (0.00-0.22); BASOPHILS % (AUTO) 1.1 % (0.0-2.0); EOSINOPHILS # (AUTO) 1.3 K/uL (0-0.4); EOSINOPHILS % (AUTO) 14.7 % (0.0-4.0); HEMATOCRIT 24.8 % (36-48); HEMOGLOBIN 7.8 g/dL (12.0-16.0); LYMPHOCYTES # (AUTO) 1.6 K/uL (2.5-16.5); LYMPHOCYTES % (AUTO) 17.4 % (20.5-51.1); MEAN CORPUSCULAR HEMOGLOBIN 29 pg (27-31); MEAN CORPUSCULAR HGB CONC 32 g/dL (33-37); MONOCYTES # (AUTO) 0.9 K/uL (0.8-1.0); MONOCYTES % (AUTO) 9.6 % (1.7-9.3); NEUTROPHILS # (AUTO) 5.2 K/uL (1.8-7.7); NEUTROPHILS % (AUTO) 57.2 % (42.2-75.2); PLATELET COUNT (AUTO) 420 K/uL (140-450); RED BLOOD CELL COUNT(AUTO) 2.73 MIL/uL (4.20-5.40); WHITE BLOOD COUNT (AUTO) 9.1 K/uL (4.8-10.8)
[2022-02-06] MEDS ORDERED: GAUZE TP PRN (09:00)
[2022-02-06] MEDS: VIT-B COMP/VIT-C/FOLIC ACID 1 TAB PO SCH (10:17)
[2022-02-06 12:00] VITALS: BP 143/98
[2022-02-06] MEDS: GAUZE TP SCH ×2 (13:00)
--- NOTE | 2022-02-06 13:20 | NUR ---
02/06/22 RD FOLLOW UP COMPLETED PLEASE REFER TO NUTRITION ASSESSMENT UNDER CARE ACTIVITY FOR ESTIMATED NUTRITIONAL NEEDS. 1. CONTINUE NEPRO @ 40 ML WITH FWF 100 Q8H TOLERATED -CONTINUE MARIAJOSE BID OR PROSOURCE TID PER RD PROTOCOL -PROVIDES 100% ESTIMATED NUTRIENT NEEDS 2. MONITOR NUTRITION RELATED LAB VALUES 3. RD TO FOLLOW-UP 3-5 DAYS, MODERATE RISK BRITNEY TREVINO RD
[2022-02-06 16:00] VITALS: BP 145/83
--- NOTE | 2022-02-06 19:10 | NUR ---
ENDORSED PT TO [facility] NURSE DE LA VEGA FOR CONTINUITY OF CARE. PT IN STABLE CONDITION.
--- NOTE | 2022-02-06 19:15 | NUR ---
RECEIVED REPORT FROM RONALDO JOHNSON RN FOR CONTINUITY OF CARE. PT IS IN STABLE CONDITION WITH SPONTANEOUS EYE MOVEMENT. PT IS BREATHING EVEN, REGULAR AND UNLABORED ON ROOM AIR, PAST TRACH INCISION CLEAN AND DRY. PT IS INCONTINENT OF THE BOWEL AND BLADDER, WITH WATERY DIARRHEA. PT IS BEDBOUND, PRESSURE INJURIES NOTED ON SACRUM, FEET, RIGHT UPPER EXTREMITY, AND SURGICAL SUTURES NOTED ON LEFT UPPER EXTREMITY. PERMACATH FOR DIALYSIS NOTED IN LEFT UPPER CHEST, OLD RIGHT FEMORAL VERONICA CATH NOTED. PT IS ON G-TUBE FEEDING, NEPRO 40ML/HR. NO RESIDUAL NOTED. WILL CONTINUE TO MONITOR.
[2022-02-06 20:00] VITALS: BP 166/90
[2022-02-07] VITALS: BP 153/78
[2022-02-07] MEDS: HYDRAGUARD CREAM TP SCH ×2 (01:19→13:57)
[2022-02-07 04:00] VITALS: BP 154/87
[2022-02-07] MEDS: VANCOMYCIN HCL 25 MG/ML SOLN GT SCH ×4 (05:05→23:59)
--- NOTE | 2022-02-07 05:25 | NUR ---
FREQ ROUNDS. VSS. NOTICED PT'S GOWN WITH FRESH BLOOD.PT'S HANDWITH BLOOD SMEAR. L U CHEST PERMACATH FOR HEMODIALYSIS LEAKING BLOOD. CHANGED PERMA CATH DRESSING WITH CENTRAL LINE KIT. OLD DRESSING HAD 2 SMALL BLOOD CLOTS AND SOME EXUDATE. BOTH PORTS WRAPPED IN KERLIX AND TAPED. ALL SUTURES DRY AND INTACT. FIRVANQ 125MG/5ML MIXED IN 20cc OF STERILE WATER INFUSED VIA G-TUBE. PT TOLERATED IT WELL. TUBE FEEDING NEPRO @40CC/HR WITH 100CC WATER FLUSH Q 8 Hrs. G-TUBE HAD ONLY 10CC RESIDUAL. ALL SAFETY MEASURES IN PLACE. WILL CONTINUE TO MONITOR.
--- NOTE | 2022-02-07 07:30 | NUR ---
ENDORSED REPORT TO AM NURSE SANTHOSH RN FOR CONTINUITY OF CARE. PT IS STABLE. ALL NEEDS MET THROUGHOUT THE SHIFT.
[2022-02-07 08:00] VITALS: BP 159/99
[2022-02-07 08:11] LABS: BASOPHILS # (AUTO) 0.1 K/uL (0.00-0.22); BASOPHILS % (AUTO) 1.1 % (0.0-2.0); EOSINOPHILS # (AUTO) 1.3 K/uL (0-0.4); EOSINOPHILS % (AUTO) 12.3 % (0.0-4.0); HEMATOCRIT 23.4 % (36-48); HEMOGLOBIN 7.3 g/dL (12.0-16.0); LYMPHOCYTES # (AUTO) 1.4 K/uL (2.5-16.5); LYMPHOCYTES % (AUTO) 13.2 % (20.5-51.1); MEAN CORPUSCULAR HEMOGLOBIN 28 pg (27-31); MEAN CORPUSCULAR HGB CONC 31 g/dL (33-37); MEAN CORPUSCULAR VOLUME 90.8 fL (80-94); MONOCYTES # (AUTO) 0.9 K/uL (0.8-1.0); MONOCYTES % (AUTO) 8.5 % (1.7-9.3); NEUTROPHILS # (AUTO) 6.8 K/uL (1.8-7.7); NEUTROPHILS % (AUTO) 64.9 % (42.2-75.2); PLATELET COUNT (AUTO) 448 K/uL (140-450); RED BLOOD CELL COUNT(AUTO) 2.58 MIL/uL (4.20-5.40); RED CELL DISTRIBUTION WIDTH 18.7 % (11.6-13.7); WHITE BLOOD COUNT (AUTO) 10.5 K/uL (4.8-10.8)
[2022-02-07 08:25] LABS: ALBUMIN 2.3 g/dL (3.4-5.0); ANION GAP 13.1 (8-16); CARBON DIOXIDE 26.8 mmol/L (21-32); POTASSIUM 3.9 mmol/L (3.5-5.1); TOTAL BILIRUBIN 0.3 mg/dL (0.0-1.0)
[2022-02-07] MEDS: VIT-B COMP/VIT-C/FOLIC ACID 1 TAB PO SCH (09:47)
--- NOTE | 2022-02-07 11:54 | NUR ---
RECEIVE ENDORSEMENT FROM PM SHIFT NURSE WHILE PATIENT REST IN BED W/ NO IV ACCESS, G-TUBE INFUSING NEPRO @40ML/HR WITH 100ML WATER FLUSHING Q 8HR. PATIENT IS ON HEMODIALYSIS AND TODAY IS HER DIALYSIS DAY. ON ROOM AIR, COME FOR STATUS POST OF INFECTED AV GRAFT W/ HX OF DM, CKD, DM, HYPOTHYROIDISM, HEMICRANIOTOMY, HTN, CVA W/ R. WEAKNESS, CHF, CAD, AND SEIZURE, COVID POSITIVE. WILL CONTINUE TO MONITOR
[2022-02-07 12:00] VITALS: BP 150/96
[2022-02-07] MEDS: GAUZE TP SCH ×2 (13:57)
[2022-02-07 16:00] VITALS: BP 149/94
--- NOTE | 2022-02-07 19:23 | NUR ---
ENDORSE PATIENT TO PM SHIFT NURSE WHILE PATIENT REST IN BED W/ NO IV ACCESS, G-TUBE INFUSING NEPRO 40ML/HR WITH 100ML WATER FLUSHING Q8HR. PATIENT IS SCHEDULE TO HAVE HEMODIALYSIS TODAY, ON ROOM AIR
--- NOTE | 2022-02-07 19:25 | NUR ---
RECEIVED PATIENT FROM AM SHIFT NURSE SANTHOSH FOR CONTINUITY OF CARE.PATIENT IS RESTING IN BED, ON ROOM AIR W/ NO IV ACCESS, G-TUBE INFUSING NEPRO 40ML/HR WITH 100ML WATER FLUSHING Q8HR. PATIENT IS SCHEDULE TO HAVE HEMODIALYSIS TODAY. ALL SAFETY MEASURES IN PLACE. WILL CONTINUE TO MONITOR.
[2022-02-07 20:00] VITALS: BP 138/80
--- NOTE | 2022-02-07 20:30 | NUR ---
HEMODIALYSIS STARTED NOW USING L UPPER CHEST PERMA CATH FOR ACCESS. HS MEDS ON HOLD. WILL CONTINUE TO MONITOR.
--- NOTE | 2022-02-07 23:30 | NUR ---
HEMODIALYSIS FINISHED. GOT 1700CC OFF. VSS: BP-101/56, HR-109, NO BLEEDING. DIALYSIS NURSE DEVEN SAID ANOTHER DIALYSIS WAS SCHEDULED 02/08/22. SHE WOULD BE BACK. CONTINUE WITH FREQ ROUNDS.
[2022-02-08] VITALS: BP 130/82
--- NOTE | 2022-02-08 01:00 | NUR ---
FREQ ROUNDS. CHECKED PT IS STABLE AND ASLEEP IN BED. RR EVEN AND UNLABORED WITH EQUAL CHEST RISE. ALL SAFETY MEASURES IN PLACE. BED IN LOW AND LOCKED POSITION. CALL LIGHT WITHIN REACH. WILL CONTINUE TO MONITOR.
[2022-02-08] MEDS: HYDRAGUARD CREAM TP SCH ×2 (01:13→12:41)
[2022-02-08 04:00] VITALS: BP 131/70
[2022-02-08] MEDS: VANCOMYCIN HCL 25 MG/ML SOLN GT SCH ×3 (05:18→18:08)
--- NOTE | 2022-02-08 06:00 | NUR ---
PT'S FIRVANQ 125MG/5mL GIVEN INSTRUCTED THROUGH G-TUBE. NO RESIDUAL. TURNED AND REPOSITIONED. HAD BM LOOSE WITH LIQUID. SACRUM DRESSING REINFORCED. WILL ENDORSE TO DAY SHIFT TO FOLLOW UP.
--- NOTE | 2022-02-08 07:10 | NUR ---
ENDORSED PT REPOERT TO AM NURSE TREVIZO FOR CONTINUITY OF CARE. PT IS STABLE. ALL NEEDS MET THROUGHOUT THE SHIFT.
[2022-02-08 08:00] VITALS: BP 135/77
[2022-02-08] MEDS ORDERED: ALGINATE DRESSING MC SCH (09:00)
[2022-02-08] MEDS: LORazepam 0.5 MG TAB PO SCH (09:36)
[2022-02-08] MEDS: VIT-B COMP/VIT-C/FOLIC ACID 1 TAB PO SCH (09:36)
[2022-02-08 12:00] VITALS: BP 150/84
[2022-02-08] MEDS: GAUZE TP SCH ×2 (12:40)
--- NOTE | 2022-02-08 14:00 | NUR ---
DISCHARGE PLAN PATIENT IS A 56-YEAR OLD FEMALE ADMITTED ON 02/03/2022 TO THE ED/[facility] FROM [facility] DUE TO LEFT ARM INFECTED FISTULA. PATIENT ALSO HAS A STAGE 4 DECUBITUS ULCER OF THE SACRUM. PATIENT HAS MEDICAL HISTORY OF A G TUBE AND TRACHEOSTOMY, CKD, ON HD, DM, HYPOTHYROIDISM, HEMICRANIECTOMY, HTN, CEREBROVASCULAR ACCIDENT, CAD/CHF. BELLE DID NOT MET IN PERSON WITH PATIENT DUE TO RESENT COVID POSITIVE TEST. INSTEAD SW CONTACTED PATIENT'S ALON CASTILLO VIA TELEPHONIC CALL TO DISCUSS AND GATHER HER COLLATERAL INFORMATION. PER PATIENT HAS PLENTY OF FAMILY SUPPORT. IN JUNE OF LAST YEAR PATIENT GOT REALLY SICK AND WAS HOSPITALIZED AT [facility]. THE PATIENT WAS PLACED AT [facility] AND HAS BEEN THERE SINCE. PER PATIENT'S SHE HAS NO ADVANCE DIRECTIVES AND IS NOT INTERESTED ON GETTING INFORMATION FORMS PROVIDED BY BELLE. PATIENT'S REPORTED THAT PATIENT WAS LIVING AT HOME WITH HIM PRIOR TO HER ILLNESS AND HAVE THREE ADULT CHILDREN TOGETHER. PER PATIENT'S HE IS HER EMERGENCY CONTACT AND MEDICAL DECISION MAKER. PATIENT IS TO CONTINUE WITH [facility] CARE AND WHEN SHE IS READY FOR DC PATIENT WILL BE RETURNING TO [facility]. PER PATIENT'S SHE IS WELL CARE FOR AT THE FACILITY AND ALL HER MEDICAL NEEDS ARE TAKING CARE OFF. ALLS HER MEDICATION ARE PROVIDED AND EQUIPMENT NECESSARY. PER PATIENT'S SHE RECENTLY HAS A SURGERY AT [facility] AND [facility] HOWEVER SHE HAD TO BE TRANSFER FROM AN OUTSIDE HOSPITAL AFTER HER REMOVAL OF INFECTED LUE AV JAMES. PER HE WILL BE VISITING PATIENT THIS EVENING SINCE HE WAS ALLOW TO SEE HER YESTERDAY WITH A MASK. PER PATIENT'S HE THANKED BELLE FOR CALLING AND PROVIDING UPDATES ABOUT PATIENT. SW WILL FOLLOW UP NEEDED. BELLE CONTACTED [facility] AT SPOKE TO NAYELI FROM ADMISSION WHO PROVIDED INFORMATION ABOUT PATIENT. PER NAYELI PATIENT WILL BE ABLE TO RETURN TO THEIR FACILITY WHEN SHE IS STABLE TO DISCHARGE. PATIENT IS ALSO RECEIVING DIALYSIS TUE, , AND FRIDAYS AT 8:00AM. PER NAYELI SHE WILL LIKE PATIENT'S UPDATED CLINICALS WHEN SHE IS READY FOR DISCHARGE. BELLE WILL FOLLOW UP NEEDED.
[2022-02-08 16:00] VITALS: BP 106/70
[2022-02-08 20:00] VITALS: BP 121/66
--- NOTE | 2022-02-08 20:07 | NUR ---
ENDORSE PATIENT TO PM SHIFT NURSE WHILE PATIENT REST IN BED W/ NO IV ACCESS, G-TUBE INFUSING NEPRO 40ML/HR WITH 100ML WATER FLUSHING Q8HR. PATIENT'S SPOUSE COME VISIT HER YESTERDAY AND TODAY.
[2022-02-09] VITALS: BP 118/61
[2022-02-09] MEDS: HYDRAGUARD CREAM TP SCH ×2 (01:02→12:31)
[2022-02-09] MEDS: VANCOMYCIN HCL 25 MG/ML SOLN GT SCH ×3 (05:35→12:00)
--- NOTE | 2022-02-09 07:42 | NUR ---
RECEIVED REPORT FROM RETURN TO VENDOR NURSE FOR CONTINUITY OF CARE, POC DISCUSSED. REPORTED NO GROIN CATH IN PLACE, CHEST PERMA CATH IN PLACE. HEMODIALYSIS COMPLETED AT 2200 02/08/22, 800 CC REMOVED. BALTAZAR TELLEZ CLEANED PT UP RPIOR TO SHIFT CHANGE. PT IS RESTING IN BED WITH NO ACUTE S/S OF DISTRESS. ALL SAFETY MEASURES IN PLACE, CALL LIGHT WITHIN REACH. WILL CONTINUE TO MONITOR.
[2022-02-09 08:00] VITALS: BP 136/71
[2022-02-09] MEDS: VIT-B COMP/VIT-C/FOLIC ACID 1 TAB PO SCH (09:34)
[2022-02-09] MEDS ORDERED: VANC125C5 PO (11:36)
[2022-02-09 12:00] VITALS: BP 138/76
[2022-02-09] MEDS: GAUZE TP SCH ×2 (12:30→12:31)
--- NOTE | 2022-02-09 15:00 | NUR ---
FULL REPORT WAS GIVEN TO ROSALINDA ALVAREZ AT [facility]. PT IS GOING TO SNF SIDE, NOT REHAB SIDE. [employer] PICKED UP PT IN STABLE CONDITION. PT CLEANED FROM BM PRIOR TO DISCHARGE. DISCHARGE PIC TAKEN. ALL DISCHARGE PAPER WORK AND COMPLETED, AND GIVEN TO TRANSPORT PERSONNEL, ALONG WITH BELONGINGS. ENDORSED NEW MEDICATION, GTUBE, REMOVAL OF TRACH, S/P SURGERY FOR INFECTED AV GRAFT AND NEW HD ACCESS, ALONG WITH ALL THE WOUNDS ON PT. ALL QUESTIONS ANSWERED. PT STABLE.
[2022-02-10] MEDS ORDERED: EPOETIN ALFA-EPBX 10,000 UNITS/ML VIAL IV SCH (09:00)
== END 2022-02-09 14:55 | DRG 314 ==
LOC: MTU 17:30
PROVIDERS: ADMIT Student in an Organized Health Care Education/Training Program; ATTEND Student in an Organized Health Care Education/Training Program
PROC: 5A1D70Z Performance of Urinary Filtration, Intermittent, Less than 6 Hours Per Day (ICD-10-PCS; principal; 2022-02-05)
PROC: 5A1D70Z Performance of Urinary Filtration, Intermittent, Less than 6 Hours Per Day (ICD-10-PCS; 2022-02-06)
PROC: 5A1D70Z Performance of Urinary Filtration, Intermittent, Less than 6 Hours Per Day (ICD-10-PCS; 2022-02-07)
PROC: 5A1D70Z Performance of Urinary Filtration, Intermittent, Less than 6 Hours Per Day (ICD-10-PCS; 2022-02-08)
DX: T82.7XXA Infection and inflammatory reaction due to other cardiac and vascular devices, implants and grafts, initial encounter (principal); J12.82 Pneumonia due to coronavirus disease 2019; N18.6 End stage renal disease; U07.1 COVID-19; J96.10 Chronic respiratory failure, unspecified whether with hypoxia or hypercapnia; A04.72 Enterocolitis due to Clostridium difficile, not specified as recurrent; I13.2 Hypertensive heart and chronic kidney disease with heart failure and with stage 5 chronic kidney disease, or end stage renal disease; D63.1 Anemia in chronic kidney disease; R13.10 Dysphagia, unspecified; G40.909 Epilepsy, unspecified, not intractable, without status epilepticus; I25.10 Atherosclerotic heart disease of native coronary artery without angina pectoris; I50.9 Heart failure, unspecified; E03.9 Hypothyroidism, unspecified; K80.20 Calculus of gallbladder without cholecystitis without obstruction; Y83.2 Surgical operation with anastomosis, bypass or graft as the cause of abnormal reaction of the patient, or of later complication, without mention of misadventure at the time of the procedure; E11.22 Type 2 diabetes mellitus with diabetic chronic kidney disease; S31.000A Unspecified open wound of lower back and pelvis without penetration into retroperitoneum, initial encounter; X58.XXXA Exposure to other specified factors, initial encounter; L89.90 Pressure ulcer of unspecified site, unspecified stage; Z99.2 Dependence on renal dialysis; Z86.73 Personal history of transient ischemic attack (TIA), and cerebral infarction without residual deficits; Z93.1 Gastrostomy status; Z93.0 Tracheostomy status; Z79.891 Long term (current) use of opiate analgesic; Z79.899 Other long term (current) drug therapy; Z79.1 Long term (current) use of non-steroidal anti-inflammatories (NSAID); Y92.89 Other specified places as the place of occurrence of the external cause; Y93.89 Activity, other specified; Y99.8 Other external cause status
CPT/HCPCS: 36415; 80048; 80053; 85025; 87081; 87635-QW; J1644

== ENCOUNTER 2023-05-19 21:25 | Inpatient (IN) | payer OTHER, MEDICAID ==
[~2023-05-19] VITALS: Ht 152.4 cm; Wt 45.4 kg
[~2023-05-19 21:25] MED LIST changes: -IV Meropenam IV; -IV Vancomycin IV; +VANC125C5 PO
[2023-05-19 21:39] VITALS: PULSE 125; RESP 29; O2SAT 100
[2023-05-19] MEDS ORDERED: ACETAMINOPHEN 650 MG SUPP RC ONE (21:40)
[2023-05-19 21:44] VITALS: BP 120/70; PULSE 130; RESP 16; TEMP 101.2; O2SAT 34
[2023-05-19] MEDS ORDERED: LEVOFLOXACIN 500 MG/D5W PREMIX 100 ML IV ONE (22:35)
[2023-05-19 22:37] LABS: BLOOD GAS HCO3 31.2 mmol/L (22-26); BLOOD GAS PCO2 37.8 mmHg (35-45); BLOOD GAS PH 7.534 (7.35-7.45); BLOOD GAS PO2 171.3 mmHg (75-100)
[2023-05-19 22:38] LABS: BLOOD GAS O2 SAT% 99.7 % (92.0-98.5)
[2023-05-19 23:01] LABS: BASOPHILS # (AUTO) 0.2 K/uL (0.00-0.22); BASOPHILS % (AUTO) 1.2 % (0.0-2.0); EOSINOPHILS # (AUTO) 0.3 K/uL (0-0.4); EOSINOPHILS % (AUTO) 2.3 % (0.0-4.0); HEMATOCRIT 31.4 % (36-48); HEMOGLOBIN 9.5 g/dL (12.0-16.0); LYMPHOCYTES # (AUTO) 0.6 K/uL (2.5-16.5); LYMPHOCYTES % (AUTO) 4.8 % (20.5-51.1); MEAN CORPUSCULAR HEMOGLOBIN 28 pg (27-31); MEAN CORPUSCULAR HGB CONC 30 g/dL (33-37); MEAN CORPUSCULAR VOLUME 92.4 fL (80-94); MONOCYTES # (AUTO) 0.6 K/uL (0.8-1.0); MONOCYTES % (AUTO) 4.4 % (1.7-9.3); NEUTROPHILS # (AUTO) 11.1 K/uL (1.8-7.7); NEUTROPHILS % (AUTO) 87.3 % (42.2-75.2); PLATELET COUNT (AUTO) 576 K/uL (140-450); RED BLOOD CELL COUNT(AUTO) 3.39 MIL/uL (4.20-5.40); RED CELL DISTRIBUTION WIDTH 19.4 % (11.6-13.7); WHITE BLOOD COUNT (AUTO) 12.7 K/uL (4.8-10.8)
[2023-05-19 23:55] LABS: ALBUMIN 2.2 g/dL (3.4-5.0); ANION GAP 13.8 (8-16); CALCIUM 10.8 mg/dL (8.5-10.1); CARBON DIOXIDE 31.4 mmol/L (21-32); POTASSIUM 4.2 mmol/L (3.5-5.1); TOTAL BILIRUBIN 0.5 mg/dL (0.0-1.0); TOTAL PROTEIN, SERUM 8.8 g/dL (6.4-8.2)
[2023-05-20] VITALS (13 sets, daily range): BP systolic 127–138; BP diastolic 71–78; PULSE 89–146; RESP 19–20; TEMP 97.8–100.8; O2SAT 95–100
[2023-05-20 00:03] LABS: LACTIC ACID 1.6 mmol/L (0.4-2.0)
[2023-05-20 00:12] LABS: INR 0.95 (0.8-1.2); PARTIAL THROMBOPLASTIN TIME 24.6 secs (22-35.6)
[2023-05-20 00:14] LABS: APPEARANCE,URINE CLEAR (CLEAR); BILIRUBIN,URINE NEGATIVE (NEGATIVE); BLOOD, URINE 3+ (NEGATIVE); COLOR,URINE YELLOW (YELLOW); LEUKOCYTE ESTERASE ,URINE 2+ (NEGATIVE); NITRITE, URINE NEGATIVE (NEGATIVE); PH,URINE 7.5 (5.0-9.0); PROTEIN,URINE 2+ (NEGATIVE); UGLUCOSE NEGATIVE (NEGATIVE); UROBILINOGEN,URINE 0.2 EU/dL (0.2 - 1)
[2023-05-20 00:18] LABS: BACTERIA,URINE >30 (MANY) /HPF (None Seen); MUCUS,URINE 1+ /LPF (None Seen); RBC,URINE 11-20 (MOD) /HPF (0-5); SQUAMOUS EPITHELIAL CELL,UR 0-3 (FEW) /LPF (0-3 (FEW)); WBC,URINE TOO MANY TO COUNT /HPF (0-5)
[2023-05-20] MEDS ORDERED: HYDROcodone/APAP 5/325 MG 1 TAB TAB GT PRN (09:15)
[2023-05-20] MEDS ORDERED: LEVOFLOXACIN 500 MG/D5W PREMIX 100 ML IV SCH (09:15)
[2023-05-20] MEDS ORDERED: CLONIDINE HYDROCHLORIDE 0.1 MG TAB GT PRN (09:15)
[2023-05-20] MEDS ORDERED: ONDANSETRON 4 MG/2 ML VIAL IVP PRN (09:15)
[2023-05-20] MEDS: ACETAMINOPHEN 650 MG/20.3 ML UDC GT PRN ×3 (11:06→22:29)
[2023-05-20] MEDS ORDERED: THERAHONEY GEL 42.5 GM TP PRN (12:00)
[2023-05-20] MEDS ORDERED: NON-FORMULARY ITEM (Calcium Acetate 1 TAB) GT SCH (13:00)
[2023-05-20] MEDS: THERAHONEY GEL 42.5 GM TP SCH (13:00)
[2023-05-20] MEDS: ALBUTEROL 0.083% 2.5 MG/3 ML NEBU INH SCH ×2 (13:44→19:00)
[2023-05-20] MEDS: IPRATROPIUM 0.02% 0.5 MG/2.5 ML NEBU INH SCH ×2 (13:48→19:00)
[2023-05-20] MEDS: Z-GUARD PASTE TP SCH (17:37)
[2023-05-20] MEDS: DEXT 5% / NACL 0.45% 1,000 ML IV SCH (17:38)
[2023-05-20] MEDS: CALCIUM ACETATE 667 MG TAB GT SCH ×2 (17:39→20:17)
[2023-05-20] MEDS: MIDODRINE 5 MG TAB GT SCH ×2 (17:40→20:17)
[2023-05-20] MEDS: CLINDAMYCIN 900MG/D5W PM 50 ML IV SCH (20:18)
[2023-05-20] MEDS ORDERED: CHLORHEXIDINE GLUCONATE PO SCH (21:00)
[2023-05-20] MEDS ORDERED: DILTIAZEM 25 MG/5 ML VIAL IVP ONE ×2 (21:05→22:26)
[2023-05-21] VITALS (15 sets, daily range): BP systolic 103–136; BP diastolic 59–91; PULSE 98–124; RESP 19–29; TEMP 97.4–99.5; O2SAT 96–100
[2023-05-21] MEDS: Z-GUARD PASTE TP SCH ×2 (01:10→13:04)
[2023-05-21] MEDS: MIDODRINE 5 MG TAB GT SCH ×3 (05:00→21:35)
[2023-05-21] MEDS: CALCIUM ACETATE 667 MG TAB GT SCH ×3 (05:15→21:35)
[2023-05-21] MEDS: CLINDAMYCIN 900MG/D5W PM 50 ML IV SCH ×2 (05:16→12:58)
[2023-05-21] MEDS: ACETAMINOPHEN 650 MG/20.3 ML UDC GT PRN (06:01)
[2023-05-21] MEDS: ALBUTEROL SULFATE/IPRATROPIU 3 ML SOL IH SCH ×2 (06:40→12:47)
[2023-05-21 09:46] LABS: HEMOGLOBIN 7.6 g/dL (12.0-16.0)
[2023-05-21 09:48] LABS: HEMATOCRIT 24.5 % (36-48); MEAN CORPUSCULAR HEMOGLOBIN 29 pg (27-31); MEAN CORPUSCULAR HGB CONC 31 g/dL (33-37); MEAN CORPUSCULAR VOLUME 92.9 fL (80-94); PLATELET COUNT (AUTO) 458 K/uL (140-450); RED BLOOD CELL COUNT(AUTO) 2.64 MIL/uL (4.20-5.40); RED CELL DISTRIBUTION WIDTH 19.6 % (11.6-13.7); WHITE BLOOD COUNT (AUTO) 17.5 K/uL (4.8-10.8)
[2023-05-21] MEDS: PANTOPRAZOLE 40 MG INJ VIAL IVP SCH (09:52)
[2023-05-21] MEDS: VIT-B COMP/VIT-C/FOLIC ACID 1 TAB GT SCH (09:53)
[2023-05-21] MEDS: DEXT 5% / NACL 0.45% 1,000 ML IV SCH (09:53)
[2023-05-21 09:59] LABS: ANION GAP 17.6 (8-16); CALCIUM 10.8 mg/dL (8.5-10.1); CARBON DIOXIDE 27.7 mmol/L (21-32); POTASSIUM 4.3 mmol/L (3.5-5.1)
[2023-05-21 10:06] LABS: CREATININE 5.1 mg/dL (0.6-1.3)
[2023-05-21 10:23] LABS: BASOPHILS % (MANUAL) 0 % (0-2); BLASTS, MANUAL % 0 % (0-0); EOSINOPHILS % (MANUAL) 0 % (0-4); LYMPHOCYTES % (MANUAL) 10 % (20-46); METAMYELOCYTES % 0 % (0-0); MONOCYTES % (MANUAL) 2 % (5-12); MYELOCYTES % 0 % (0-0); OTHER CELLS,MANUAL % 0 (0-0); PLASMA CELLS 0; PLATELET ESTIMATE INCREASED; PROMYELOCYTES % 0 % (0-0)
[2023-05-21 10:24] LABS: ANISOCYTOSIS 1+
[2023-05-21 11:11] LABS: MAGNESIUM 3.1 mg/dL (1.8-2.4); PHOSPHORUS 3.8 mg/dL (2.5-4.9)
[2023-05-21] MEDS: THERAHONEY GEL 42.5 GM TP SCH (13:01)
[2023-05-21] MEDS ORDERED: VANCOMYCIN PER PHARMACY MC PRN (13:15)
[2023-05-21] MEDS ORDERED: VANCOMYCIN 500 MG in NACL 0.9% 100 ML IV SCH ×2 (15:00→21:00)
[2023-05-21] MEDS: metroNIDAZOLE 500 MG/NS PREMIX 100 ML IV SCH (21:36)
[2023-05-21] MEDS ORDERED: LEVOFLOXACIN 250 MG/D5 PREMIX 50 ML IV SCH (22:00)
[2023-05-22] VITALS (15 sets, daily range): BP systolic 113–151; BP diastolic 63–77; PULSE 95–114; RESP 18–26; TEMP 97.9–98.6; O2SAT 96–100
[2023-05-22] MEDS: Z-GUARD PASTE TP SCH ×2 (01:00→13:58)
[2023-05-22] MEDS: metroNIDAZOLE 500 MG/NS PREMIX 100 ML IV SCH ×2 (06:43→13:59)
[2023-05-22] MEDS: CALCIUM ACETATE 667 MG TAB GT SCH ×3 (06:44→22:04)
[2023-05-22] MEDS: MIDODRINE 5 MG TAB GT SCH ×3 (06:44→22:04)
[2023-05-22] MEDS: ALBUTEROL SULFATE/IPRATROPIU 3 ML SOL IH SCH ×3 (07:13→19:29)
[2023-05-22 08:09] LABS: BASOPHILS # (AUTO) 0.1 K/uL (0.00-0.22); EOSINOPHILS # (AUTO) 0.4 K/uL (0-0.4); EOSINOPHILS % (AUTO) 5.4 % (0.0-4.0); HEMATOCRIT 25.4 % (36-48); HEMOGLOBIN 7.8 g/dL (12.0-16.0); LYMPHOCYTES # (AUTO) 0.8 K/uL (2.5-16.5); LYMPHOCYTES % (AUTO) 10.3 % (20.5-51.1); MEAN CORPUSCULAR HEMOGLOBIN 28 pg (27-31); MEAN CORPUSCULAR HGB CONC 31 g/dL (33-37); MEAN CORPUSCULAR VOLUME 91.1 fL (80-94); MONOCYTES # (AUTO) 0.5 K/uL (0.8-1.0); MONOCYTES % (AUTO) 6.1 % (1.7-9.3); NEUTROPHILS % (AUTO) 77.2 % (42.2-75.2); PLATELET COUNT (AUTO) 392 K/uL (140-450); RED BLOOD CELL COUNT(AUTO) 2.79 MIL/uL (4.20-5.40); RED CELL DISTRIBUTION WIDTH 19.4 % (11.6-13.7); WHITE BLOOD COUNT (AUTO) 7.8 K/uL (4.8-10.8)
[2023-05-22 08:18] LABS: ANION GAP 12.7 (8-16); CALCIUM 10.1 mg/dL (8.5-10.1); CREATININE 2.9 mg/dL (0.6-1.3); POTASSIUM 3.7 mmol/L (3.5-5.1)
[2023-05-22 08:23] LABS: MAGNESIUM 2.4 mg/dL (1.8-2.4); PHOSPHORUS 2.6 mg/dL (2.5-4.9)
[2023-05-22] MEDS: PANTOPRAZOLE 40 MG INJ VIAL IVP SCH (08:42)
[2023-05-22] MEDS: VIT-B COMP/VIT-C/FOLIC ACID 1 TAB GT SCH (08:42)
[2023-05-22] MEDS: THERAHONEY GEL 42.5 GM TP SCH (13:58)
[2023-05-22] MEDS ORDERED: MEROPENEM 500 MG VIAL IV ONE (20:22)
[2023-05-22] MEDS: MEROPENEM 500 MG in NACL 0.9% 50 ML IV SCH (20:27)
[2023-05-23] VITALS (13 sets, daily range): BP systolic 115–143; BP diastolic 60–84; PULSE 92–111; RESP 16–21; TEMP 96.6–98.8; O2SAT 97–100
[2023-05-23] MEDS: CALCIUM ACETATE 667 MG TAB GT SCH ×2 (06:14→13:48)
[2023-05-23] MEDS: MIDODRINE 5 MG TAB GT SCH ×3 (06:14→21:00)
[2023-05-23] MEDS: Z-GUARD PASTE TP SCH ×2 (06:15→17:30)
[2023-05-23] MEDS: ALBUTEROL SULFATE/IPRATROPIU 3 ML SOL IH SCH ×3 (07:23→19:28)
[2023-05-23 08:20] LABS: BASOPHILS # (AUTO) 0.1 K/uL (0.00-0.22); BASOPHILS % (AUTO) 1.1 % (0.0-2.0); EOSINOPHILS # (AUTO) 0.9 K/uL (0-0.4); EOSINOPHILS % (AUTO) 10.7 % (0.0-4.0); HEMATOCRIT 26.7 % (36-48); HEMOGLOBIN 8.5 g/dL (12.0-16.0); LYMPHOCYTES # (AUTO) 1.1 K/uL (2.5-16.5); LYMPHOCYTES % (AUTO) 13.2 % (20.5-51.1); MEAN CORPUSCULAR HEMOGLOBIN 29 pg (27-31); MEAN CORPUSCULAR HGB CONC 32 g/dL (33-37); MEAN CORPUSCULAR VOLUME 90.1 fL (80-94); MONOCYTES # (AUTO) 0.6 K/uL (0.8-1.0); MONOCYTES % (AUTO) 7.7 % (1.7-9.3); NEUTROPHILS # (AUTO) 5.7 K/uL (1.8-7.7); NEUTROPHILS % (AUTO) 67.3 % (42.2-75.2); PLATELET COUNT (AUTO) 387 K/uL (140-450); RED BLOOD CELL COUNT(AUTO) 2.96 MIL/uL (4.20-5.40); RED CELL DISTRIBUTION WIDTH 19.1 % (11.6-13.7); WHITE BLOOD COUNT (AUTO) 8.4 K/uL (4.8-10.8)
[2023-05-23 08:42] LABS: ALBUMIN 1.7 g/dL (3.4-5.0); ANION GAP 13.4 (8-16); CALCIUM 10.9 mg/dL (8.5-10.1); CARBON DIOXIDE 28.8 mmol/L (21-32); MAGNESIUM 2.9 mg/dL (1.8-2.4); PHOSPHORUS 2.7 mg/dL (2.5-4.9); POTASSIUM 4.2 mmol/L (3.5-5.1); TOTAL BILIRUBIN 0.3 mg/dL (0.0-1.0); TOTAL PROTEIN, SERUM 6.7 g/dL (6.4-8.2)
[2023-05-23 08:50] LABS: CREATININE 4.1 mg/dL (0.6-1.3)
[2023-05-23] MEDS: PANTOPRAZOLE 40 MG INJ VIAL IVP SCH (08:55)
[2023-05-23] MEDS: MEROPENEM 500 MG in NACL 0.9% 50 ML IV SCH (08:55)
[2023-05-23] MEDS ORDERED: NON-FORMULARY ITEM (Amino Acids/Protein Hydrolys (Pro-Stat Sugar Free Liquid) 30 ML) GT SCH (09:00)
[2023-05-23] MEDS: VIT-B COMP/VIT-C/FOLIC ACID 1 TAB GT SCH (09:47)
[2023-05-23] MEDS: ALGINATE DRESSING MC SCH (10:45)
[2023-05-23] MEDS ORDERED: LIDOCAINE MPF 1% 10 MG/ML VIAL INJ SCH (12:45)
[2023-05-23] MEDS: THERAHONEY GEL 42.5 GM TP SCH (17:30)
[2023-05-23] MEDS ORDERED: HEPARIN PER PHARMACY MC PRN (21:15)
[2023-05-24] VITALS (17 sets, daily range): BP systolic 125–154; BP diastolic 65–79; PULSE 85–118; RESP 17–21; TEMP 97.6–98.7; O2SAT 97–100
[2023-05-24] MEDS: VANCOMYCIN 500 MG in DEXTROSE 5% 100 ML IV SCH ×2 (00:11→00:36)
[2023-05-24] MEDS: MIDODRINE 5 MG TAB GT SCH ×4 (00:13→21:00)
[2023-05-24] MEDS: MEROPENEM 500 MG in NACL 0.9% 50 ML IV SCH ×3 (00:14→21:00)
[2023-05-24] MEDS: CALCIUM ACETATE 667 MG TAB GT SCH ×4 (00:31→20:59)
[2023-05-24] MEDS ORDERED: WATER STERILE 20 ML MC ONE (01:05)
[2023-05-24] MEDS: VANCOMYCIN 500 MG VIAL PO SCH ×2 (01:14→05:56)
[2023-05-24] MEDS: Z-GUARD PASTE TP SCH ×2 (01:16→13:00)
[2023-05-24] MEDS ORDERED: hePARIN / DEXT 5% PREMIX 250 ML IV SCH (03:05)
[2023-05-24 03:46] LABS: BASOPHILS # (AUTO) 0.1 K/uL (0.00-0.22); EOSINOPHILS # (AUTO) 1.1 K/uL (0-0.4); EOSINOPHILS % (AUTO) 12.7 % (0.0-4.0); HEMATOCRIT 23.7 % (36-48); HEMOGLOBIN 7.5 g/dL (12.0-16.0); LYMPHOCYTES # (AUTO) 1.1 K/uL (2.5-16.5); LYMPHOCYTES % (AUTO) 12.7 % (20.5-51.1); MEAN CORPUSCULAR HEMOGLOBIN 28 pg (27-31); MEAN CORPUSCULAR HGB CONC 32 g/dL (33-37); MEAN CORPUSCULAR VOLUME 89.8 fL (80-94); MONOCYTES # (AUTO) 0.7 K/uL (0.8-1.0); MONOCYTES % (AUTO) 7.6 % (1.7-9.3); NEUTROPHILS # (AUTO) 5.8 K/uL (1.8-7.7); PLATELET COUNT (AUTO) 404 K/uL (140-450); RED BLOOD CELL COUNT(AUTO) 2.64 MIL/uL (4.20-5.40); WHITE BLOOD COUNT (AUTO) 8.8 K/uL (4.8-10.8)
[2023-05-24 04:02] LABS: INR 0.97 (0.8-1.2); PARTIAL THROMBOPLASTIN TIME 34.3 secs (22-35.6); PROTHROMBIN TIME 10.2 secs (10.8-13.4)
[2023-05-24 04:08] LABS: POTASSIUM 3.9 mmol/L (3.5-5.1)
[2023-05-24 04:39] LABS: ALBUMIN 1.8 g/dL (3.4-5.0); CALCIUM 11.5 mg/dL (8.5-10.1); CARBON DIOXIDE 27.9 mmol/L (21-32); MAGNESIUM 3.4 mg/dL (1.8-2.4); TOTAL BILIRUBIN 0.4 mg/dL (0.0-1.0)
[2023-05-24 04:48] LABS: CREATININE 5.2 mg/dL (0.6-1.3)
[2023-05-24] MEDS: ALBUTEROL SULFATE/IPRATROPIU 3 ML SOL IH SCH ×3 (07:00→18:57)
[2023-05-24] MEDS: PANTOPRAZOLE 40 MG INJ VIAL IVP SCH (09:52)
[2023-05-24] MEDS: EPOETIN ALFA 10,000 UNITS/ML VIAL IV SCH (09:53)
[2023-05-24] MEDS: VIT-B COMP/VIT-C/FOLIC ACID 1 TAB GT SCH (09:53)
[2023-05-24] MEDS: VANCOMYCIN HCL 25 MG/ML SOLN PO SCH ×2 (12:08→18:48)
[2023-05-24 12:11] LABS: INR 0.95 (0.8-1.2); PARTIAL THROMBOPLASTIN TIME 36.5 secs (22-35.6)
[2023-05-24] MEDS: THERAHONEY GEL 42.5 GM TP SCH (13:00)
[2023-05-25] VITALS (19 sets, daily range): BP systolic 140–158; BP diastolic 68–81; PULSE 91–104; RESP 16–23; TEMP 97.5–98.5; O2SAT 97–100
[2023-05-25] MEDS: VANCOMYCIN HCL 25 MG/ML SOLN PO SCH ×5 (00:42→23:16)
[2023-05-25] MEDS: Z-GUARD PASTE TP SCH ×2 (01:55→12:36)
[2023-05-25] MEDS: CALCIUM ACETATE 667 MG TAB GT SCH ×3 (04:48→21:00)
[2023-05-25] MEDS: MIDODRINE 5 MG TAB GT SCH ×3 (04:48→21:00)
[2023-05-25 07:04] LABS: BASOPHILS # (AUTO) 0.1 K/uL (0.00-0.22); BASOPHILS % (AUTO) 0.9 % (0.0-2.0); EOSINOPHILS # (AUTO) 1.8 K/uL (0-0.4); EOSINOPHILS % (AUTO) 19.1 % (0.0-4.0); HEMATOCRIT 23.8 % (36-48); HEMOGLOBIN 7.5 g/dL (12.0-16.0); LYMPHOCYTES # (AUTO) 1.1 K/uL (2.5-16.5); LYMPHOCYTES % (AUTO) 11.7 % (20.5-51.1); MEAN CORPUSCULAR HEMOGLOBIN 29 pg (27-31); MEAN CORPUSCULAR HGB CONC 32 g/dL (33-37); MEAN CORPUSCULAR VOLUME 90.6 fL (80-94); MONOCYTES # (AUTO) 0.6 K/uL (0.8-1.0); MONOCYTES % (AUTO) 6.3 % (1.7-9.3); PLATELET COUNT (AUTO) 462 K/uL (140-450); RED BLOOD CELL COUNT(AUTO) 2.62 MIL/uL (4.20-5.40); RED CELL DISTRIBUTION WIDTH 19.6 % (11.6-13.7); WHITE BLOOD COUNT (AUTO) 9.6 K/uL (4.8-10.8)
[2023-05-25] MEDS: ALBUTEROL SULFATE/IPRATROPIU 3 ML SOL IH SCH ×3 (07:12→19:03)
[2023-05-25 07:22] LABS: ANION GAP 14.6 (8-16); CALCIUM 11.5 mg/dL (8.5-10.1); CARBON DIOXIDE 28.8 mmol/L (21-32); POTASSIUM 4.4 mmol/L (3.5-5.1)
[2023-05-25 07:30] LABS: MAGNESIUM 3.7 mg/dL (1.8-2.4); PHOSPHORUS 3.7 mg/dL (2.5-4.9)
[2023-05-25 07:39] LABS: CREATININE 6.1 mg/dL (0.6-1.3)
[2023-05-25] MEDS: VIT-B COMP/VIT-C/FOLIC ACID 1 TAB GT SCH (08:33)
[2023-05-25] MEDS: PANTOPRAZOLE 40 MG INJ VIAL IVP SCH ×2 (08:37→09:00)
[2023-05-25] MEDS: MEROPENEM 500 MG in NACL 0.9% 50 ML IV SCH ×3 (08:37→21:00)
[2023-05-25] MEDS: THERAHONEY GEL 42.5 GM TP SCH (12:35)
[2023-05-25] MEDS ORDERED: HEPARIN PER PHARMACY MC PRN ×2 (15:00)
[2023-05-25] MEDS: hePARIN / DEXT 5% PREMIX 250 ML IV SCH ×2 (15:04→23:27)
[2023-05-26] VITALS (20 sets, daily range): BP systolic 103–149; BP diastolic 60–100; PULSE 93–105; RESP 16–25; TEMP 97.5–99.4; O2SAT 94–100
[2023-05-26] MEDS: ALBUTEROL SULFATE/IPRATROPIU 3 ML SOL IH SCH ×4 (01:00→19:37)
[2023-05-26] MEDS: Z-GUARD PASTE TP SCH ×2 (01:27→12:39)
[2023-05-26 03:15] LABS: BASOPHILS # (AUTO) 0.1 K/uL (0.00-0.22); BASOPHILS % (AUTO) 0.9 % (0.0-2.0); EOSINOPHILS # (AUTO) 2.2 K/uL (0-0.4); EOSINOPHILS % (AUTO) 17.9 % (0.0-4.0); HEMATOCRIT 24.7 % (36-48); HEMOGLOBIN 7.7 g/dL (12.0-16.0); LYMPHOCYTES # (AUTO) 1.6 K/uL (2.5-16.5); MEAN CORPUSCULAR HEMOGLOBIN 28 pg (27-31); MEAN CORPUSCULAR HGB CONC 31 g/dL (33-37); MEAN CORPUSCULAR VOLUME 90.4 fL (80-94); MONOCYTES # (AUTO) 0.7 K/uL (0.8-1.0); MONOCYTES % (AUTO) 5.6 % (1.7-9.3); NEUTROPHILS # (AUTO) 7.5 K/uL (1.8-7.7); NEUTROPHILS % (AUTO) 62.6 % (42.2-75.2); PLATELET COUNT (AUTO) 521 K/uL (140-450); RED BLOOD CELL COUNT(AUTO) 2.73 MIL/uL (4.20-5.40); RED CELL DISTRIBUTION WIDTH 19.6 % (11.6-13.7)
[2023-05-26 03:32] LABS: POTASSIUM 4.9 mmol/L (3.5-5.1)
[2023-05-26 03:33] LABS: MAGNESIUM 3.9 mg/dL (1.8-2.4); PHOSPHORUS 4.1 mg/dL (2.5-4.9)
[2023-05-26] MEDS: hePARIN / DEXT 5% PREMIX 250 ML IV SCH ×4 (04:45→18:25)
[2023-05-26] MEDS: MIDODRINE 5 MG TAB GT SCH ×3 (05:00→20:55)
[2023-05-26] MEDS: CALCIUM ACETATE 667 MG TAB GT SCH ×3 (05:03→20:54)
[2023-05-26] MEDS: VANCOMYCIN HCL 25 MG/ML SOLN PO SCH ×4 (05:04→23:36)
[2023-05-26 06:52] LABS: ANION GAP 19.9 (8-16)
[2023-05-26 07:14] LABS: CREATININE 6.9 mg/dL (0.6-1.3)
[2023-05-26] MEDS: PANTOPRAZOLE 40 MG INJ VIAL IVP SCH (08:30)
[2023-05-26] MEDS: MEROPENEM 500 MG in NACL 0.9% 50 ML IV SCH ×2 (08:30→20:55)
[2023-05-26] MEDS: EPOETIN ALFA 10,000 UNITS/ML VIAL IV SCH (08:31)
[2023-05-26] MEDS: VIT-B COMP/VIT-C/FOLIC ACID 1 TAB GT SCH (08:31)
[2023-05-26] MEDS ORDERED: LIDOCAINE MPF 1% 10 MG/ML VIAL INJ SCH (09:25)
[2023-05-26] MEDS: ALGINATE DRESSING MC SCH (09:35)
[2023-05-26] MEDS: LORazepam 2 MG/ML VIAL IVP PRN ×2 (09:42→16:55)
[2023-05-26] MEDS: THERAHONEY GEL 42.5 GM TP SCH (12:39)
[2023-05-27] VITALS (15 sets, daily range): BP systolic 99–129; BP diastolic 57–74; PULSE 86–107; RESP 16–25; TEMP 96.8–99.1; O2SAT 97–100
[2023-05-27] MEDS: ALBUTEROL SULFATE/IPRATROPIU 3 ML SOL IH SCH ×4 (00:50→20:28)
[2023-05-27] MEDS: Z-GUARD PASTE TP SCH ×2 (01:17→13:04)
[2023-05-27] MEDS: CALCIUM ACETATE 667 MG TAB GT SCH ×3 (05:09→21:30)
[2023-05-27] MEDS: VANCOMYCIN HCL 25 MG/ML SOLN PO SCH ×3 (05:10→18:05)
[2023-05-27] MEDS: MIDODRINE 5 MG TAB GT SCH ×3 (05:10→21:30)
[2023-05-27 05:49] LABS: BASOPHILS # (AUTO) 0.1 K/uL (0.00-0.22); BASOPHILS % (AUTO) 1.2 % (0.0-2.0); EOSINOPHILS # (AUTO) 1.6 K/uL (0-0.4); EOSINOPHILS % (AUTO) 15.5 % (0.0-4.0); HEMATOCRIT 23.6 % (36-48); HEMOGLOBIN 7.5 g/dL (12.0-16.0); LYMPHOCYTES # (AUTO) 1.7 K/uL (2.5-16.5); LYMPHOCYTES % (AUTO) 16.2 % (20.5-51.1); MEAN CORPUSCULAR HEMOGLOBIN 29 pg (27-31); MEAN CORPUSCULAR HGB CONC 32 g/dL (33-37); MEAN CORPUSCULAR VOLUME 90.8 fL (80-94); MONOCYTES # (AUTO) 0.7 K/uL (0.8-1.0); MONOCYTES % (AUTO) 6.5 % (1.7-9.3); NEUTROPHILS # (AUTO) 6.4 K/uL (1.8-7.7); NEUTROPHILS % (AUTO) 60.6 % (42.2-75.2); PLATELET COUNT (AUTO) 607 K/uL (140-450); RED CELL DISTRIBUTION WIDTH 19.2 % (11.6-13.7); WHITE BLOOD COUNT (AUTO) 10.6 K/uL (4.8-10.8)
[2023-05-27 06:19] LABS: ANION GAP 12.4 (8-16); CALCIUM 10.5 mg/dL (8.5-10.1); POTASSIUM 4.4 mmol/L (3.5-5.1)
[2023-05-27 06:34] LABS: MAGNESIUM 2.9 mg/dL (1.8-2.4)
[2023-05-27] MEDS: MEROPENEM 500 MG in NACL 0.9% 50 ML IV SCH ×2 (09:00→21:00)
[2023-05-27] MEDS: VIT-B COMP/VIT-C/FOLIC ACID 1 TAB GT SCH (09:43)
[2023-05-27] MEDS: PANTOPRAZOLE 40 MG INJ VIAL IVP SCH (09:44)
[2023-05-27] MEDS ORDERED: VANCOMYCIN 500 MG in DEXTROSE 5% 100 ML IV SCH (11:00)
[2023-05-27] MEDS: THERAHONEY GEL 42.5 GM TP SCH (13:04)
[2023-05-28] VITALS (15 sets, daily range): BP systolic 113–125; BP diastolic 63–72; PULSE 87–101; RESP 17–26; TEMP 97.1–98.6; O2SAT 96–100
[2023-05-28] MEDS: VANCOMYCIN HCL 25 MG/ML SOLN PO SCH ×5 (00:42→23:22)
[2023-05-28] MEDS: ALBUTEROL SULFATE/IPRATROPIU 3 ML SOL IH SCH ×4 (01:03→19:43)
[2023-05-28] MEDS: Z-GUARD PASTE TP SCH ×2 (02:00→13:00)
[2023-05-28] MEDS: MIDODRINE 5 MG TAB GT SCH ×3 (05:13→21:18)
[2023-05-28] MEDS: CALCIUM ACETATE 667 MG TAB GT SCH ×3 (05:13→21:18)
[2023-05-28] MEDS: EPOETIN ALFA 10,000 UNITS/ML VIAL IV SCH (09:00)
[2023-05-28] MEDS: MEROPENEM 500 MG in NACL 0.9% 50 ML IV SCH ×2 (09:00→23:02)
[2023-05-28] MEDS: PANTOPRAZOLE 40 MG INJ VIAL IVP SCH (09:00)
[2023-05-28 09:03] LABS: BASOPHILS # (AUTO) 0.1 K/uL (0.00-0.22); BASOPHILS % (AUTO) 1.1 % (0.0-2.0); EOSINOPHILS # (AUTO) 1.4 K/uL (0-0.4); EOSINOPHILS % (AUTO) 15.8 % (0.0-4.0); HEMATOCRIT 25.6 % (36-48); HEMOGLOBIN 7.9 g/dL (12.0-16.0); LYMPHOCYTES # (AUTO) 1.5 K/uL (2.5-16.5); LYMPHOCYTES % (AUTO) 16.5 % (20.5-51.1); MEAN CORPUSCULAR HEMOGLOBIN 29 pg (27-31); MEAN CORPUSCULAR HGB CONC 31 g/dL (33-37); MEAN CORPUSCULAR VOLUME 92.3 fL (80-94); MONOCYTES # (AUTO) 0.6 K/uL (0.8-1.0); MONOCYTES % (AUTO) 7.1 % (1.7-9.3); NEUTROPHILS # (AUTO) 5.3 K/uL (1.8-7.7); NEUTROPHILS % (AUTO) 59.5 % (42.2-75.2); PLATELET COUNT (AUTO) 678 K/uL (140-450); RED BLOOD CELL COUNT(AUTO) 2.77 MIL/uL (4.20-5.40); RED CELL DISTRIBUTION WIDTH 19.4 % (11.6-13.7); WHITE BLOOD COUNT (AUTO) 8.9 K/uL (4.8-10.8)
[2023-05-28 09:15] LABS: ANION GAP 14.1 (8-16); CALCIUM 10.8 mg/dL (8.5-10.1); CARBON DIOXIDE 29.5 mmol/L (21-32); POTASSIUM 4.6 mmol/L (3.5-5.1)
[2023-05-28 09:18] LABS: MAGNESIUM 3.3 mg/dL (1.8-2.4); PHOSPHORUS 4.7 mg/dL (2.5-4.9)
[2023-05-28 09:21] LABS: CREATININE 5.4 mg/dL (0.6-1.3)
[2023-05-28] MEDS: VIT-B COMP/VIT-C/FOLIC ACID 1 TAB GT SCH (09:34)
[2023-05-28] MEDS: THERAHONEY GEL 42.5 GM TP SCH (13:00)
[2023-05-29] VITALS (12 sets, daily range): BP systolic 137–152; BP diastolic 75–80; PULSE 95–112; RESP 17–29; TEMP 97–97.9; O2SAT 99–100
[2023-05-29] MEDS: ALBUTEROL SULFATE/IPRATROPIU 3 ML SOL IH SCH ×4 (00:49→20:11)
[2023-05-29] MEDS: Z-GUARD PASTE TP SCH ×2 (01:18→13:00)
[2023-05-29] MEDS: CALCIUM ACETATE 667 MG TAB GT SCH ×3 (04:42→22:07)
[2023-05-29] MEDS: MIDODRINE 5 MG TAB GT SCH ×3 (04:43→22:07)
[2023-05-29 07:41] LABS: BASOPHILS # (AUTO) 0.1 K/uL (0.00-0.22); BASOPHILS % (AUTO) 1.1 % (0.0-2.0); EOSINOPHILS # (AUTO) 1.6 K/uL (0-0.4); EOSINOPHILS % (AUTO) 15.9 % (0.0-4.0); HEMATOCRIT 23.7 % (36-48); HEMOGLOBIN 7.4 g/dL (12.0-16.0); LYMPHOCYTES # (AUTO) 1.4 K/uL (2.5-16.5); LYMPHOCYTES % (AUTO) 13.8 % (20.5-51.1); MEAN CORPUSCULAR HEMOGLOBIN 29 pg (27-31); MEAN CORPUSCULAR HGB CONC 31 g/dL (33-37); MEAN CORPUSCULAR VOLUME 92.7 fL (80-94); MONOCYTES # (AUTO) 0.7 K/uL (0.8-1.0); MONOCYTES % (AUTO) 6.5 % (1.7-9.3); NEUTROPHILS # (AUTO) 6.3 K/uL (1.8-7.7); NEUTROPHILS % (AUTO) 62.7 % (42.2-75.2); PLATELET COUNT (AUTO) 664 K/uL (140-450); RED BLOOD CELL COUNT(AUTO) 2.56 MIL/uL (4.20-5.40); RED CELL DISTRIBUTION WIDTH 19.5 % (11.6-13.7); WHITE BLOOD COUNT (AUTO) 10.1 K/uL (4.8-10.8)
[2023-05-29 07:49] LABS: ANION GAP 14.3 (8-16); CALCIUM 10.7 mg/dL (8.5-10.1); CREATININE 3.5 mg/dL (0.6-1.3); POTASSIUM 4.3 mmol/L (3.5-5.1)
[2023-05-29 08:10] LABS: MAGNESIUM 2.8 mg/dL (1.8-2.4); PHOSPHORUS 4.5 mg/dL (2.5-4.9)
[2023-05-29] MEDS: MEROPENEM 500 MG in NACL 0.9% 50 ML IV SCH ×2 (09:00→22:07)
[2023-05-29] MEDS: ALGINATE DRESSING MC SCH (09:00)
[2023-05-29] MEDS: PANTOPRAZOLE 40 MG INJ VIAL IVP SCH (09:00)
[2023-05-29] MEDS: VIT-B COMP/VIT-C/FOLIC ACID 1 TAB GT SCH (10:47)
[2023-05-29] MEDS ORDERED: VANCOMYCIN PER PHARMACY MC PRN (11:10)
[2023-05-29] MEDS: VANCOMYCIN HCL 25 MG/ML SOLN PO SCH ×2 (12:00→18:42)
[2023-05-29] MEDS ORDERED: VANCOMYCIN 500 MG VIAL PO SCH (12:00)
[2023-05-29] MEDS ORDERED: VANCOMYCIN 500 MG in DEXTROSE 5% 100 ML IV SCH (13:00)
[2023-05-29] MEDS: THERAHONEY GEL 42.5 GM TP SCH (13:00)
[2023-05-29] MEDS: APIXABAN 2.5 MG TAB PO SCH (22:08)
[2023-05-30] VITALS (14 sets, daily range): BP systolic 112–168; BP diastolic 63–89; PULSE 92–108; RESP 16–27; TEMP 97.6–98.5; O2SAT 99–100
[2023-05-30] MEDS: Z-GUARD PASTE TP SCH ×2 (01:00→13:00)
[2023-05-30] MEDS: ALBUTEROL SULFATE/IPRATROPIU 3 ML SOL IH SCH ×4 (01:59→21:24)
[2023-05-30] MEDS: MIDODRINE 5 MG TAB GT SCH ×3 (05:44→21:51)
[2023-05-30] MEDS: CALCIUM ACETATE 667 MG TAB GT SCH ×3 (05:44→21:52)
[2023-05-30] MEDS: VANCOMYCIN HCL 25 MG/ML SOLN PO SCH ×4 (05:44→14:39)
[2023-05-30 06:06] LABS: BASOPHILS # (AUTO) 0.1 K/uL (0.00-0.22); BASOPHILS % (AUTO) 1.3 % (0.0-2.0); EOSINOPHILS # (AUTO) 1.4 K/uL (0-0.4); EOSINOPHILS % (AUTO) 17.7 % (0.0-4.0); HEMATOCRIT 23.5 % (36-48); HEMOGLOBIN 7.4 g/dL (12.0-16.0); LYMPHOCYTES # (AUTO) 1.2 K/uL (2.5-16.5); LYMPHOCYTES % (AUTO) 16.2 % (20.5-51.1); MEAN CORPUSCULAR HEMOGLOBIN 29 pg (27-31); MEAN CORPUSCULAR HGB CONC 32 g/dL (33-37); MEAN CORPUSCULAR VOLUME 91.9 fL (80-94); MONOCYTES # (AUTO) 0.6 K/uL (0.8-1.0); MONOCYTES % (AUTO) 7.8 % (1.7-9.3); NEUTROPHILS # (AUTO) 4.4 K/uL (1.8-7.7); PLATELET COUNT (AUTO) 622 K/uL (140-450); RED BLOOD CELL COUNT(AUTO) 2.55 MIL/uL (4.20-5.40); WHITE BLOOD COUNT (AUTO) 7.7 K/uL (4.8-10.8)
[2023-05-30 08:03] LABS: ALBUMIN 2.2 g/dL (3.4-5.0); ANION GAP 16.6 (8-16); CALCIUM 10.3 mg/dL (8.5-10.1); CARBON DIOXIDE 25.7 mmol/L (21-32); MAGNESIUM 3.1 mg/dL (1.8-2.4); PHOSPHORUS 5.5 mg/dL (2.5-4.9); POTASSIUM 4.3 mmol/L (3.5-5.1); TOTAL BILIRUBIN 0.5 mg/dL (0.0-1.0); TOTAL PROTEIN, SERUM 7.3 g/dL (6.4-8.2)
[2023-05-30 08:05] LABS: CREATININE 4.7 mg/dL (0.6-1.3)
[2023-05-30] MEDS: PANTOPRAZOLE 40 MG INJ VIAL IVP SCH (08:56)
[2023-05-30] MEDS: VIT-B COMP/VIT-C/FOLIC ACID 1 TAB GT SCH (08:57)
[2023-05-30] MEDS: MEROPENEM 500 MG in NACL 0.9% 50 ML IV SCH ×2 (08:58→21:00)
[2023-05-30] MEDS: APIXABAN 2.5 MG TAB PO SCH ×2 (09:17→21:52)
[2023-05-30] MEDS: THERAHONEY GEL 42.5 GM TP SCH (13:00)
[2023-05-31] VITALS (10 sets, daily range): BP systolic 127–150; BP diastolic 79–88; PULSE 86–105; RESP 16–21; TEMP 96.7–97.9; O2SAT 100
[2023-05-31] MEDS: ALBUTEROL SULFATE/IPRATROPIU 3 ML SOL IH SCH ×4 (00:37→18:49)
[2023-05-31] MEDS: VANCOMYCIN HCL 25 MG/ML SOLN PO SCH ×5 (01:41→23:40)
[2023-05-31] MEDS: Z-GUARD PASTE TP SCH ×2 (01:42→13:04)
[2023-05-31] MEDS: CALCIUM ACETATE 667 MG TAB GT SCH ×3 (04:21→20:50)
[2023-05-31] MEDS: MIDODRINE 5 MG TAB GT SCH ×3 (04:22→20:50)
[2023-05-31 05:55] LABS: BASOPHILS # (AUTO) 0.2 K/uL (0.00-0.22); BASOPHILS % (AUTO) 2.2 % (0.0-2.0); EOSINOPHILS # (AUTO) 1.2 K/uL (0-0.4); EOSINOPHILS % (AUTO) 13.6 % (0.0-4.0); HEMATOCRIT 25.9 % (36-48); HEMOGLOBIN 8.2 g/dL (12.0-16.0); LYMPHOCYTES # (AUTO) 1.3 K/uL (2.5-16.5); LYMPHOCYTES % (AUTO) 14.9 % (20.5-51.1); MEAN CORPUSCULAR HEMOGLOBIN 29 pg (27-31); MEAN CORPUSCULAR HGB CONC 32 g/dL (33-37); MONOCYTES # (AUTO) 0.8 K/uL (0.8-1.0); MONOCYTES % (AUTO) 9.3 % (1.7-9.3); NEUTROPHILS # (AUTO) 5.2 K/uL (1.8-7.7); PLATELET COUNT (AUTO) 764 K/uL (140-450); RED BLOOD CELL COUNT(AUTO) 2.82 MIL/uL (4.20-5.40); RED CELL DISTRIBUTION WIDTH 19.8 % (11.6-13.7); WHITE BLOOD COUNT (AUTO) 8.6 K/uL (4.8-10.8)
[2023-05-31 06:27] LABS: ALBUMIN 2.4 g/dL (3.4-5.0); ANION GAP 14.3 (8-16); CALCIUM 10.5 mg/dL (8.5-10.1); CARBON DIOXIDE 27.3 mmol/L (21-32); CREATININE 3.6 mg/dL (0.6-1.3); MAGNESIUM 2.6 mg/dL (1.8-2.4); PHOSPHORUS 5.2 mg/dL (2.5-4.9); POTASSIUM 4.6 mmol/L (3.5-5.1); TOTAL BILIRUBIN 0.5 mg/dL (0.0-1.0); TOTAL PROTEIN, SERUM 8.1 g/dL (6.4-8.2)
[2023-05-31] MEDS: MEROPENEM 500 MG in NACL 0.9% 50 ML IV SCH ×2 (09:00→13:02)
[2023-05-31] MEDS: PANTOPRAZOLE 40 MG INJ VIAL IVP SCH (09:00)
[2023-05-31] MEDS: EPOETIN ALFA 10,000 UNITS/ML VIAL IV SCH (10:17)
[2023-05-31] MEDS: APIXABAN 2.5 MG TAB PO SCH ×2 (10:20→20:51)
[2023-05-31] MEDS: VIT-B COMP/VIT-C/FOLIC ACID 1 TAB GT SCH (10:22)
[2023-05-31] MEDS: THERAHONEY GEL 42.5 GM TP SCH (13:04)
[2023-05-31] MEDS ORDERED: LIDOCAINE/EPI MPF 1%1:200000 30 ML VIAL INJ ONE (13:38)
[2023-06-01] VITALS (8 sets, daily range): BP systolic 96–146; BP diastolic 50–93; PULSE 89–128; RESP 16–29; TEMP 97.3–97.9; O2SAT 100
[2023-06-01] MEDS: Z-GUARD PASTE TP SCH ×2 (01:23→13:35)
[2023-06-01] MEDS: ALBUTEROL SULFATE/IPRATROPIU 3 ML SOL IH SCH ×3 (01:36→13:44)
[2023-06-01] MEDS: CALCIUM ACETATE 667 MG TAB GT SCH ×2 (04:51→12:14)
[2023-06-01] MEDS: MIDODRINE 5 MG TAB GT SCH ×2 (04:51→12:14)
[2023-06-01] MEDS: VANCOMYCIN HCL 25 MG/ML SOLN PO SCH ×2 (05:18→12:11)
[2023-06-01 05:55] LABS: ANION GAP 19.8 (8-16); CALCIUM 10.4 mg/dL (8.5-10.1); CARBON DIOXIDE 24.3 mmol/L (21-32); POTASSIUM 5.1 mmol/L (3.5-5.1)
[2023-06-01 05:58] LABS: BASOPHILS # (AUTO) 0.2 K/uL (0.00-0.22); BASOPHILS % (AUTO) 2.5 % (0.0-2.0); CREATININE 4.8 mg/dL (0.6-1.3); EOSINOPHILS # (AUTO) 1.1 K/uL (0-0.4); EOSINOPHILS % (AUTO) 12.3 % (0.0-4.0); HEMATOCRIT 24.8 % (36-48); HEMOGLOBIN 7.8 g/dL (12.0-16.0); LYMPHOCYTES # (AUTO) 1.7 K/uL (2.5-16.5); LYMPHOCYTES % (AUTO) 18.6 % (20.5-51.1); MEAN CORPUSCULAR HEMOGLOBIN 29 pg (27-31); MEAN CORPUSCULAR HGB CONC 31 g/dL (33-37); MEAN CORPUSCULAR VOLUME 92.5 fL (80-94); MONOCYTES # (AUTO) 0.8 K/uL (0.8-1.0); MONOCYTES % (AUTO) 9.2 % (1.7-9.3); NEUTROPHILS # (AUTO) 5.2 K/uL (1.8-7.7); NEUTROPHILS % (AUTO) 57.4 % (42.2-75.2); PLATELET COUNT (AUTO) 719 K/uL (140-450); RED BLOOD CELL COUNT(AUTO) 2.68 MIL/uL (4.20-5.40); RED CELL DISTRIBUTION WIDTH 19.4 % (11.6-13.7); WHITE BLOOD COUNT (AUTO) 9.1 K/uL (4.8-10.8)
[2023-06-01 06:41] LABS: MAGNESIUM 3.1 mg/dL (1.8-2.4); PHOSPHORUS 7.3 mg/dL (2.5-4.9)
[2023-06-01] MEDS: PANTOPRAZOLE 40 MG INJ VIAL IVP SCH (09:48)
[2023-06-01] MEDS: APIXABAN 2.5 MG TAB PO SCH (09:49)
[2023-06-01] MEDS: VIT-B COMP/VIT-C/FOLIC ACID 1 TAB GT SCH (09:50)
[2023-06-01] MEDS: ALGINATE DRESSING MC SCH (09:50)
[2023-06-01] MEDS: THERAHONEY GEL 42.5 GM TP SCH (13:35)
[2023-06-01] MEDS ORDERED: VANC500F IV (15:43)
[2023-06-01] MEDS ORDERED: VANC25SO PO (15:43)
[2023-06-01] MEDS ORDERED: APIX2.5 PO (15:43)
[2023-06-01] MEDS ORDERED: METOPROLOL 5 MG/5 ML VIAL IV SCH (16:40)
[2023-06-01] MEDS ORDERED: VANCOMYCIN 500 MG in DEXTROSE 5% 100 ML IV SCH (17:00)
[2023-06-03] MEDS ORDERED: EPOETIN ALFA 10,000 UNITS/ML VIAL SUBQ SCH (09:00)
== END 2023-06-01 17:10 | DRG 870 ==
LOC: MED 21:25 → MTU 05-20 01:32 → MMU 05-26 16:01
PROVIDERS: ADMIT Preventive Medicine Preventive Medicine/Occupational Environmental Medicine; ATTEND Preventive Medicine Preventive Medicine/Occupational Environmental Medicine
PROC: 5A1955Z Respiratory Ventilation, Greater than 96 Consecutive Hours (ICD-10-PCS; principal; 2023-05-19)
PROC: 0JPW3XZ Removal of Tunneled Vascular Access Device from Lower Extremity Subcutaneous Tissue and Fascia, Percutaneous Approach (ICD-10-PCS; 2023-05-23)
PROC: 06PYX3Z Removal of Infusion Device from Lower Vein, External Approach (ICD-10-PCS; 2023-05-23)
PROC: 05HY33Z Insertion of Infusion Device into Upper Vein, Percutaneous Approach (ICD-10-PCS; 2023-05-25)
PROC: B54MZZA Ultrasonography of Right Upper Extremity Veins, Guidance (ICD-10-PCS; 2023-05-25)
PROC: 02H633Z Insertion of Infusion Device into Right Atrium, Percutaneous Approach (ICD-10-PCS; 2023-05-26)
PROC: B548ZZA Ultrasonography of Superior Vena Cava, Guidance (ICD-10-PCS; 2023-05-26)
PROC: 05HY33Z Insertion of Infusion Device into Upper Vein, Percutaneous Approach (ICD-10-PCS; 2023-05-28)
PROC: B54MZZA Ultrasonography of Right Upper Extremity Veins, Guidance (ICD-10-PCS; 2023-05-28)
PROC: 5A1D70Z Performance of Urinary Filtration, Intermittent, Less than 6 Hours Per Day (ICD-10-PCS; 2023-05-28)
PROC: 5A1D70Z Performance of Urinary Filtration, Intermittent, Less than 6 Hours Per Day (ICD-10-PCS; 2023-05-30)
PROC: 02PAX3Z Removal of Infusion Device from Heart, External Approach (ICD-10-PCS; 2023-05-31)
PROC: 0JH63XZ Insertion of Tunneled Vascular Access Device into Chest Subcutaneous Tissue and Fascia, Percutaneous Approach (ICD-10-PCS; 2023-05-31)
PROC: 02HV33Z Insertion of Infusion Device into Superior Vena Cava, Percutaneous Approach (ICD-10-PCS; 2023-05-31)
PROC: B548ZZA Ultrasonography of Superior Vena Cava, Guidance (ICD-10-PCS; 2023-05-31)
PROC: 05HY33Z Insertion of Infusion Device into Upper Vein, Percutaneous Approach (ICD-10-PCS; 2023-05-31)
PROC: B54MZZA Ultrasonography of Right Upper Extremity Veins, Guidance (ICD-10-PCS; 2023-05-31)
PROC: 5A1D70Z Performance of Urinary Filtration, Intermittent, Less than 6 Hours Per Day (ICD-10-PCS; 2023-06-01)
DX: A41.51 Sepsis due to Escherichia coli [E. coli] (principal); L89.153 Pressure ulcer of sacral region, stage 3; E43 Unspecified severe protein-calorie malnutrition; J18.9 Pneumonia, unspecified organism; N18.6 End stage renal disease; J96.21 Acute and chronic respiratory failure with hypoxia; T80.211A Bloodstream infection due to central venous catheter, initial encounter; N39.0 Urinary tract infection, site not specified; Z99.11 Dependence on respirator [ventilator] status; I82.B12 Acute embolism and thrombosis of left subclavian vein; N17.9 Acute kidney failure, unspecified; I12.0 Hypertensive chronic kidney disease with stage 5 chronic kidney disease or end stage renal disease; A04.72 Enterocolitis due to Clostridium difficile, not specified as recurrent; D63.1 Anemia in chronic kidney disease; Y83.8 Other surgical procedures as the cause of abnormal reaction of the patient, or of later complication, without mention of misadventure at the time of the procedure; B96.89 Other specified bacterial agents as the cause of diseases classified elsewhere; B96.20 Unspecified Escherichia coli [E. coli] as the cause of diseases classified elsewhere; D75.839 Thrombocytosis, unspecified; R74.01 Elevation of levels of liver transaminase levels; E88.09 Other disorders of plasma-protein metabolism, not elsewhere classified; E83.52 Hypercalcemia; E11.65 Type 2 diabetes mellitus with hyperglycemia; E83.41 Hypermagnesemia; G40.909 Epilepsy, unspecified, not intractable, without status epilepticus; R13.10 Dysphagia, unspecified; D69.6 Thrombocytopenia, unspecified; I25.10 Atherosclerotic heart disease of native coronary artery without angina pectoris; E83.39 Other disorders of phosphorus metabolism; E11.22 Type 2 diabetes mellitus with diabetic chronic kidney disease; Z99.2 Dependence on renal dialysis; Z88.6 Allergy status to analgesic agent; Z88.0 Allergy status to penicillin; Z79.899 Other long term (current) drug therapy; Z93.1 Gastrostomy status; Z79.01 Long term (current) use of anticoagulants; Z93.0 Tracheostomy status; Y92.89 Other specified places as the place of occurrence of the external cause
CPT/HCPCS: 36415; 36600; 71045; 80048; 80053; 80202; 81001; 82803; 83605; 83735; 83880; 84100; 84484; 85025; 85610; 85651; 85730; 86140; 87040; 87070; 87075; 87081; 87086; 87186; 87205; 89220; 93005; 93970; 94002; 94003; 94640; 96365; 99285; C1769; C9113; J0885; J1644; J1956; J2001; J2060; J2185; J3370; J3490; J7060; J7613; J7644; Q0092